=== PATIENT | male | born 1940 | race Caucasian/White ===

== ENCOUNTER 2018-08-06 12:00 | Inpatient (IN) | payer MEDICARE ==
[~2018-08-06] VITALS: Ht 180.3 cm; Wt 88.0 kg
[2018-08-06] VITALS (12 sets, daily range): BP systolic 142–162; BP diastolic 61–75
[2018-08-06] MEDS ORDERED: TETanus/Pertussis (Acell)/Diphther VAC/PF (Tdap-Adult) 0.5ml syringe IM ONE (13:20)
[2018-08-06] MEDS ORDERED: ondansetron/PF 4mg/2ml inj IV ONE (13:20)
[2018-08-06] MEDS ORDERED: LIDOcaine 1% w/epiNEPHrine 1:200,000 30ml vial IM ONE (13:20)
[2018-08-06] MEDS ORDERED: morphine 5 MG/ML injection IV ONE (13:20)
[2018-08-06] MEDS ORDERED: morphine 10mg/ml inj. IV ONE (13:25)
[2018-08-06] MEDS ORDERED: morphine 4 MG/ML inj SYRINge IV ONE (13:30)
[2018-08-06] MEDS ORDERED: ceFAZolin 1GM/D5W- ADD-VANTAGE 50 ML IV ONE (14:00)
[2018-08-06] MEDS ORDERED: METF-438 PO (15:53)
[2018-08-06] MEDS ORDERED: GLIP10TA11 PO (15:53)
[2018-08-06] MEDS ORDERED: SIMV20TA5 PO (15:53)
[2018-08-06] MEDS ORDERED: BENA40TA73 PO (15:54)
[2018-08-06] MEDS ORDERED: normal saline 1000ml 1,000 ML IV SCH (16:51)
[2018-08-06] MEDS ORDERED: ondansetron/PF 4mg/2ml inj IV PRN ×2 (16:55→17:15)
[2018-08-06] MEDS ORDERED: morphine 4 MG/ML inj SYRINge IV PRN ×4 (16:55→17:15)
[2018-08-06] MEDS ORDERED: magnesium 4gm in 100ml NS 100 ML IV PRN (16:55)
[2018-08-06] MEDS ORDERED: magnesium Cl slow-release 64mg tablet PO PRN (16:55)
[2018-08-06] MEDS ORDERED: potassium Cl 40MEQ/NS 500ml 500 ML IV PRN ×2 (16:55)
[2018-08-06] MEDS ORDERED: magnesium hydroxide 30ml (MOM) UD suspension PO PRN (16:55)
[2018-08-06] MEDS ORDERED: potassium Cl 20 mEq SR tablet PO PRN ×2 (16:55)
[2018-08-06] MEDS ORDERED: magnesium 2GM in 50ml NS 50 ML IV PRN (16:55)
[2018-08-06] MEDS ORDERED: bisacodyl 10mg suppository rectal RC PRN (16:55)
[2018-08-06] MEDS ORDERED: ringers solution, lacted 1,000 ML IV SCH (17:13)
[2018-08-06] MEDS ORDERED: proCHLORperazine 10 MG/2 ml inj IV PRN (17:15)
[2018-08-06] MEDS ORDERED: meperidine/PF 25mg/ml syringe IV PRN ×3 (17:15)
[2018-08-06] MEDS ORDERED: ceFAZolin 1000mg inj ONE ×3 (17:17→17:50)
[2018-08-06] MEDS ORDERED: BUPIVAcaine/PF 2.5mg/ml (0.25%) 10ml vial ONE (17:17)
[2018-08-06] MEDS ORDERED: bacitracin 15gm ointment TP ONE (17:17)
[2018-08-06 17:47] LABS: BASOPHILS % (AUTO) 0.5 % (0-1); EOSINOPHILS % (AUTO) 0.8 % (0-6); LYMPHOCYTES # (AUTO) 1.4 X10'3 (1.1-4.8); LYMPHOCYTES % (AUTO) 23.7 % (21-51); MEAN CORPUSCULAR HEMOGLOBIN 30.6 PG (27.0-31.0); MEAN CORPUSCULAR HGB CONC 35.4 g/dL (33.0-36.5); MEAN CORPUSCULAR VOLUME 86.3 FL (78-98); MEAN PLATELET VOLUME 7.8 FL (7.4-10.4); MONOCYTES # (AUTO) 0.5 X10'3 (0-0.9); MONOCYTES % (AUTO) 8.1 % (2-12); NEUTROPHILS # (AUTO) 3.9 X10'3 (1.8-7.7); NEUTROPHILS % (AUTO) 66.9 % (42-75); PRE OP HEMATOCRIT 34.3 % (42.0-52.0); PRE OP HEMOGLOBIN 12.2 g/dL (14.0-17.9); PRE OP PLATELET COUNT 220 X10'3 (140-440); RED BLOOD COUNT 3.98 X10'6 (4.70-6.10); RED CELL DISTRIBUTION WIDTH 13.5 % (11.5-14.5)
[2018-08-06] MEDS ORDERED: midazolam 2 mg/2 ml injection ONE (17:47)
[2018-08-06] MEDS ORDERED: fentaNYL/PF 50MCG/1 ML 2ML syringe ONE (17:47)
[2018-08-06] MEDS ORDERED: propofol inj 20 ML IV ONE (17:48)
[2018-08-06 17:51] LABS: ALBUMIN 3.8 G/DL (3.4-5.0); BLOOD UREA NITROGEN 19 MG/DL (7-18); BUN/CREATININE RATIO 17.1 (5.4-32.0); CALCIUM 9.2 MG/DL (8.5-10.1); CHLORIDE 104 MMOL/L (99-107); CREATININE 1.11 MG/DL (0.60-1.10); PRE OP ANION GAP 7 (8-16); PRE OP GLUCOSE 129 MG/DL (70-104); PRE OP POTASSIUM 4.2 MMOL/L (3.4-5.1); PRE OP SODIUM 139 MMOL/L (135-145); TOTAL CARBON DIOXIDE 27.7 MMOL/L (24-32); eGFR 64 ML/MIN
[2018-08-06] MEDS ORDERED: sevoflurane 250ml liquid IH ONE (17:53)
--- NOTE | 2018-08-06 19:05 | NUR ---
Received from OR via , accompanied by Anesthesiologist DR MARX and report given by Anesthesiolgist. PT IS AWAKE, NEEDS ORIENTATION, SKIN WARM AND PINK, RIGHT INDEX FINGER COVERED IN KERLIX CD, PIN AND K WIRE WITH IFEOMA DRAIN IN PLACE. VSS, SCDS, NO C/O PAIN, PIV [id number] LEFT AC WITH LR 100ML/HR.
--- NOTE | 2018-08-06 19:35 | NUR ---
Report called to receiving nurse. Transferred via BED Belongings . Special Issues communicated to receiving nurse KASEY SALAZAR. PT IS AWAKE, ALERT, MOVES EXT X 4, RIGHT INDEX FINGER DRESSING WITH SMALL SANQ DRAINAGE, PIN EXPOSED ON TIP OF FINGER, PLACED FOAM PAD TO PROTECT THE SURGICAL SITE, SCDS, NO C/O PAIN, PATIENT HAS MET DISCHARGE CRITERIA.
[2018-08-06] MEDS: docusate sod 100mg capsule PO SCH (20:00)
--- NOTE | 2018-08-06 20:00 | NUR ---
received report and patient brought to room. Post op VS initiated. Family at bedside. SCDs on and patient and patient assessed. No pain noted. Hand elevated and fluids running per order.
[2018-08-06 22:29] LABS: HEMOGLOBIN A1C 7.3 % (4.5-6.2)
[2018-08-07] MEDS: ceFAZolin 1GM/D5W- ADD-VANTAGE 50 ML IV SCH ×3 (00:15→16:19)
--- NOTE | 2018-08-07 01:06 | NUR ---
reviewed and agree with SRN assessment
[2018-08-07 02:02] VITALS: BP 145/69
[2018-08-07 06:00] VITALS: BP 137/66
--- NOTE | 2018-08-07 06:10 | NUR ---
Problems reprioritized. Patient report given, questions answered & plan of care reviewed with MARIE Granados.
[2018-08-07 06:49] LABS: BASOPHILS % (AUTO) 0.4 % (0-1); EOSINOPHILS # (AUTO) 0.1 X10'3 (0-0.9); HEMATOCRIT 32.3 % (42.0-52.0); HEMOGLOBIN 11.4 g/dl (14.0-17.9); LYMPHOCYTES # (AUTO) 1.3 X10'3 (1.1-4.8); LYMPHOCYTES % (AUTO) 20.6 % (21-51); MEAN CORPUSCULAR HEMOGLOBIN 30.4 PG (27.0-31.0); MEAN CORPUSCULAR HGB CONC 35.2 g/dL (33.0-36.5); MEAN CORPUSCULAR VOLUME 86.4 FL (78-98); MEAN PLATELET VOLUME 7.6 FL (7.4-10.4); MONOCYTES # (AUTO) 0.6 X10'3 (0-0.9); MONOCYTES % (AUTO) 9.8 % (2-12); NEUTROPHILS # (AUTO) 4.1 X10'3 (1.8-7.7); NEUTROPHILS % (AUTO) 67.2 % (42-75); PLATELET COUNT 207 X10'3 (140-440); RED BLOOD COUNT 3.73 X10'6 (4.70-6.10); RED CELL DISTRIBUTION WIDTH 13.7 % (11.5-14.5); WHITE BLOOD COUNT 6.2 X10'3 (4.5-11.0)
[2018-08-07 06:58] LABS: ALBUMIN 3.4 G/DL (3.4-5.0); ANION GAP 7 (8-16); BLOOD UREA NITROGEN 14 MG/DL (7-18); BUN/CREATININE RATIO 12.5 (5.4-32.0); CALCIUM 8.9 MG/DL (8.5-10.1); CHLORIDE 107 MMOL/L (99-107); CREATININE 1.12 MG/DL (0.60-1.10); GLUCOSE 124 MG/DL (70-104); MAGNESIUM 1.5 MG/DL (1.5-2.4); POTASSIUM 4.2 MMOL/L (3.5-5.1); SODIUM 142 MMOL/L (135-145); TOTAL CARBON DIOXIDE 27.6 MMOL/L (24-32); eGFR 64 ML/MIN
[2018-08-07] MEDS ORDERED: K and/or MAG REPLACEMENT MC SCH (08:00)
[2018-08-07] MEDS ORDERED: vancomycin/NS 1 GM ADD-VANTAGE 250 ML IV SCH (08:00)
[2018-08-07] MEDS: docusate sod 100mg capsule PO SCH (08:01)
[2018-08-07] MEDS ORDERED: HYDROcodone/acetaminophen 10/325mg tab PO PRN (09:10)
[2018-08-07] MEDS ORDERED: acetaminophen 325mg tablet PO PRN ×3 (09:10→09:50)
[2018-08-07] MEDS ORDERED: dextrose 50%-water 50ml dispensing syringe IV PRN ×2 (09:20)
[2018-08-07] MEDS ORDERED: MESSAGE TO PHARMACY PO ONE (09:20)
[2018-08-07] MEDS ORDERED: insulin Lispro (HumaLOG) vial - multi-dose SQ SCH (09:20)
[2018-08-07] MEDS ORDERED: glucagon, human recombinant 1mg kit SUBCUT PRN (09:20)
[2018-08-07] MEDS ORDERED: dextrose ORAL solution 15 GM/59 ML bottle PO PRN ×2 (09:20)
[2018-08-07 10:00] VITALS: BP 160/66
[2018-08-07] MEDS: HYDROcodone/acetaminophen 5mg/325mg tablet PO PRN ×2 (11:49→16:19)
--- NOTE | 2018-08-07 13:59 | NUR ---
DM consult: Pt with A1c 7.3 seen at bedside. Pt states he sees an MD q 6 months, takes his DM meds per rx, and checks his BG levels fasting every morning with resulting numbers 119-130. Pt admit with finger laceration. Pt given written and verbal protein and DM ed with referral to outpatient DM class. All of patient's questions answered at this time. Pt states he dislikes green beans, discussed this with dietary. RD contact information provided. Will remain available. Addendum: 08/07/18 at [address] Amended: Links added.
--- NOTE | 2018-08-07 16:55 | NUR ---
PAGER ID: [phone] MESSAGE: Roberta funes [phone] re Mr Cesar Dhaliwal in - Dr Galicia said he could dc, gave me abx, pain med rx orders and instructions, is that ok with you? Pls advise, thanks
[2018-08-07] MEDS ORDERED: TRAM50TA2 PO (17:16)
[2018-08-07] MEDS ORDERED: AMOX-419 PO (17:16)
[2018-08-07] MEDS ORDERED: atorvastatin 20mg tablet PO SCH (21:00)
[2018-08-07] MEDS ORDERED: insulin glargine (Lantus) pen - multi-dose SQ SCH (21:00)
[2018-08-08] MEDS ORDERED: lisinopril 10 MG tablet PO SCH (08:00)
== END 2018-08-07 18:00 | disposition home or self-care (01) | DRG 906 ==
LOC: ER 12:01 → PACU 16:54 → ORTHO 4S 18:12 → PACU 18:13 → ORTHO 4S 20:00
PROVIDERS: ADMIT Internal Medicine; ATTEND Family Medicine
PROC: 3E0T3BZ Introduction of Anesthetic Agent into Peripheral Nerves and Plexi, Percutaneous Approach (ICD-10-PCS; 2018-08-06)
PROC: 0LQ70ZZ Repair Right Hand Tendon, Open Approach (ICD-10-PCS; 2018-08-06)
PROC: 0RGW04Z Fusion of Right Finger Phalangeal Joint with Internal Fixation Device, Open Approach (ICD-10-PCS; principal; 2018-08-06 17:53)
DX: S68.620A Partial traumatic transphalangeal amputation of right index finger, initial encounter (principal); E11.9 Type 2 diabetes mellitus without complications; E78.5 Hyperlipidemia, unspecified; I10 Essential (primary) hypertension; R01.1 Cardiac murmur, unspecified; Z79.84 Long term (current) use of oral hypoglycemic drugs; Z79.899 Other long term (current) drug therapy; W31.89XA Contact with other specified machinery, initial encounter; Y93.89 Activity, other specified; Y92.89 Other specified places as the place of occurrence of the external cause; Y99.8 Other external cause status
CPT/HCPCS: 36415; 64450; 73140; 80048; 82948; 83036; 83735; 85025; 87070; 90471; 90715; 93005; 93306; 96365; 96375; 99285; A6222; A6449; A7000; C1713; G0378; J0690; J1815; J2175; J2250; J2270; J2405; J2704; J3010; J3370; J3490; J7120

== ENCOUNTER 2020-06-18 14:08 | Inpatient (IN) | payer MEDICARE ==
[2020-06-18] VITALS (8 sets, daily range): BP systolic 87–166; BP diastolic 46–78
[~2020-06-18] VITALS: Ht 182.9 cm; Wt 81.1 kg
[~2020-06-18 14:08] MED LIST: ASPI-1265 PO; BENA40TA73 PO; CLOP75TA34 PO; METF-950 PO; SIMV-42 PO
[2020-06-18] MEDS ORDERED: METF-438 PO (14:46)
[2020-06-18] MEDS ORDERED: CHOL100046 PO (14:50)
[2020-06-18] MEDS ORDERED: FERR-119 PO (14:50)
[2020-06-18] MEDS ORDERED: ASPI-611 PO (14:50)
[2020-06-18] MEDS ORDERED: CLOP75TA15 PO (14:50)
[2020-06-18] MEDS ORDERED: MULT-1085 PO (14:50)
[2020-06-18] MEDS ORDERED: LIDOcaine/PRILOcaine 5gm cream TP ONE (15:05)
[2020-06-18] MEDS ORDERED: diphenhydrAMINE 25mg capsule PO PRN (15:05)
[2020-06-18] MEDS ORDERED: LORazepam 0.5 MG tablet PO PRN (15:05)
[2020-06-18] MEDS ORDERED: APIX5TAB3 PO (15:20)
[2020-06-18] MEDS ORDERED: phenylephrine 10mg/ml inj. ONE (15:47)
[2020-06-18] MEDS ORDERED: midazolam 2 mg/2 ml injection ONE (15:47)
[2020-06-18] MEDS ORDERED: atropine 0.1mg/ml 10ml syringe ONE (15:48)
[2020-06-18] MEDS ORDERED: fentaNYL/PF 50MCG/1 ML 2ML syringe ONE (15:48)
[2020-06-18] MEDS ORDERED: heparin 1,000unit/ml 10ml vial 10 ML ONE (15:48)
[2020-06-18] MEDS ORDERED: iohexol 350 MG/1 ML 200ml bottle ONE (15:48)
[2020-06-18] MEDS ORDERED: DOPamine 400mg/D5W 250ml 250 ML IV ONE (15:48)
[2020-06-18] MEDS: normal saline 1,000 ML IV SCH (15:55)
[2020-06-18 15:56] LABS: BASOPHILS % (AUTO) 0.5 % (0-1); EOSINOPHILS # (AUTO) 0.1 X10'3 (0-0.9); EOSINOPHILS % (AUTO) 2.3 % (0-6); HEMATOCRIT 34.9 % (42.0-52.0); HEMOGLOBIN 11.8 g/dl (14.0-17.9); LYMPHOCYTES % (AUTO) 17.5 % (21-51); MEAN CORPUSCULAR HGB CONC 33.9 g/dL (33.0-36.5); MEAN CORPUSCULAR VOLUME 85.5 FL (78-98); MEAN PLATELET VOLUME 7.5 FL (7.4-10.4); MONOCYTES # (AUTO) 0.5 X10'3 (0-0.9); MONOCYTES % (AUTO) 9.3 % (2-12); NEUTROPHILS % (AUTO) 70.4 % (42-75); PLATELET COUNT 266 X10'3 (140-440); RED BLOOD COUNT 4.08 X10'6 (4.70-6.10); RED CELL DISTRIBUTION WIDTH 14.9 % (11.5-14.5); WHITE BLOOD COUNT 5.7 X10'3 (4.5-11.0)
[2020-06-18 15:58] LABS: ALBUMIN 3.8 G/DL (3.4-5.0); ANION GAP 8 (8-16); BLOOD UREA NITROGEN 26 MG/DL (7-18); BUN/CREATININE RATIO 24.3 (5.4-32.0); CALCIUM 9.2 MG/DL (8.5-10.1); CHLORIDE 102 MMOL/L (99-107); CREATININE 1.07 MG/DL (0.60-1.10); GLUCOSE 168 MG/DL (70-104); POTASSIUM 4.4 MMOL/L (3.5-5.1); SODIUM 137 MMOL/L (135-145); TOTAL CARBON DIOXIDE 27.1 MMOL/L (24-32); eGFR 67 ML/MIN
[2020-06-18 16:03] LABS: PARTIAL THROMBOPLASTIN TIME 26 SECONDS (22-32)
[2020-06-18] MEDS ORDERED: LIDOcaine 1% (10mg/ml)w/preservative injection 20ml MDV ONE ×2 (16:10→16:39)
[2020-06-18] MEDS ORDERED: heparin 1,000 UNITS/NS 500ml 500 ML ONE (16:17)
[2020-06-18] MEDS ORDERED: clopidogrel 300mg tablet ONE (17:06)
--- NOTE | 2020-06-18 18:05 | NUR ---
Patient arrived to the unit accompanied by laborer landscape RN, cath site asymptomatic, patient educated on lying flat and oriented to room and call light.
[2020-06-18] MEDS ORDERED: hydrALAZINE 20mg/ml inj. IV PRN (18:15)
[2020-06-18] MEDS ORDERED: proCHLORperazine 10 MG/2 ml inj IV PRN (18:15)
[2020-06-18] MEDS ORDERED: HYDROcodone/acetaminophen 10/325mg tab PO PRN (18:15)
[2020-06-18] MEDS ORDERED: HYDROcodone/acetaminophen 5mg/325mg tablet PO PRN (18:15)
[2020-06-18] MEDS ORDERED: pseudoephedrine 30mg tablet PO PRN (18:15)
[2020-06-18] MEDS ORDERED: OXAZEpam 15mg capsule PO PRN (18:15)
[2020-06-18] MEDS ORDERED: DOPamine 400MG/D5W 250 ML -PCU ONLY IV PRN (18:20)
--- NOTE | 2020-06-18 18:40 | NUR ---
Problems reprioritized. Patient report given, questions answered & plan of care reviewed with Kalee RN.
--- NOTE | 2020-06-18 20:55 | NUR ---
PAGER ID: [phone] MESSAGE: Vanivictor hugo Cesar #[id number] (Carotid Stent) last two post op vitals 87/54 MAP 65 and 88/46 MAP 60. Blood pressure is decreasing pt is asymptomatic. NS @100 running. Bolus okay?
--- NOTE | 2020-06-18 20:59 | NUR ---
Per Dr. Portillo bolus pt with 1 liter of NS then continue NS maintenance fluids at 100ml/HR
[2020-06-18] MEDS ORDERED: atorvastatin 20mg tablet PO SCH (21:00)
[2020-06-18] MEDS ORDERED: normal saline 1000ml 1,000 ML IV ONE (21:00)
[2020-06-19] VITALS: BP 92/53
[2020-06-19] MEDS: normal saline 1,000 ML IV SCH ×2 (01:05→07:58)
[2020-06-19 02:00] VITALS: BP 110/58
[2020-06-19 04:00] VITALS: BP 101/54
--- NOTE | 2020-06-19 06:26 | NUR ---
Patient in room PCU 3024. I have received report from Kalee SALAZAR and had the opportunity to ask questions and assume patient care.
[2020-06-19 07:00] VITALS: BP 101/43
[2020-06-19] MEDS ORDERED: lisinopril 20mg tablet PO SCH (08:00)
[2020-06-19] MEDS ORDERED: vitamin D (cholecalciferol) 1,000 unit tablet PO SCH (08:00)
[2020-06-19] MEDS ORDERED: aspirin 81mg tablet.DR PO SCH (08:00)
[2020-06-19] MEDS ORDERED: clopidogrel 75mg tablet PO SCH (08:00)
[2020-06-19] MEDS ORDERED: multivitamins, therapeutics tablet PO SCH (08:00)
[2020-06-19] MEDS ORDERED: ferrous sulfate 325mg tablet PO SCH (08:00)
[2020-06-19 08:17] LABS: BASOPHILS % (AUTO) 0.5 % (0-1); EOSINOPHILS # (AUTO) 0.1 X10'3 (0-0.9); EOSINOPHILS % (AUTO) 2.2 % (0-6); HEMATOCRIT 25.5 % (42.0-52.0); HEMOGLOBIN 8.8 g/dl (14.0-17.9); LYMPHOCYTES # (AUTO) 0.7 X10'3 (1.1-4.8); MEAN CORPUSCULAR HEMOGLOBIN 29.7 PG (27.0-31.0); MEAN CORPUSCULAR HGB CONC 34.4 g/dL (33.0-36.5); MEAN CORPUSCULAR VOLUME 86.2 FL (78-98); MONOCYTES # (AUTO) 0.5 X10'3 (0-0.9); MONOCYTES % (AUTO) 9.4 % (2-12); NEUTROPHILS # (AUTO) 3.7 X10'3 (1.8-7.7); NEUTROPHILS % (AUTO) 73.9 % (42-75); PLATELET COUNT 200 X10'3 (140-440); RED BLOOD COUNT 2.96 X10'6 (4.70-6.10); RED CELL DISTRIBUTION WIDTH 14.7 % (11.5-14.5)
[2020-06-19 08:27] LABS: ALANINE AMINOTRANSFERASE 18 U/L (12-78); ALBUMIN 2.8 G/DL (3.4-5.0); ALKALINE PHOSPHATASE 92 IU/L (46-116); ANION GAP 7 (8-16); ASPARTATE AMINO TRANSFERASE 19 U/L (10-37); BILIRUBIN,TOTAL 0.5 MG/DL (0.1-1.0); BLOOD UREA NITROGEN 22 MG/DL (7-18); BUN/CREATININE RATIO 20.6 (5.4-32.0); CALCIUM 7.8 MG/DL (8.5-10.1); CHLORIDE 107 MMOL/L (99-107); CREATININE 1.07 MG/DL (0.60-1.10); GLUCOSE 132 MG/DL (70-104); POTASSIUM 4.2 MMOL/L (3.5-5.1); SODIUM 139 MMOL/L (135-145); TOTAL CARBON DIOXIDE 25.5 MMOL/L (24-32); TOTAL PROTEIN 5.7 G/DL (6.4-8.2); eGFR 67 ML/MIN
[2020-06-19] MEDS ORDERED: ASPI81TA52 PO (11:54)
[2020-06-19] MEDS ORDERED: METF500T PO (11:54)
[2020-06-19] MEDS ORDERED: FERR325T28 PO (11:54)
[2020-06-19] MEDS ORDERED: SIMV20TA PO (11:54)
[2020-06-19] MEDS ORDERED: BENA40TA73 PO (11:54)
[2020-06-19] MEDS ORDERED: CHOL10005 PO (11:54)
[2020-06-19] MEDS ORDERED: APIX5TAB3 PO (11:54)
[2020-06-19] MEDS ORDERED: CLOP75TA34 PO (11:54)
[2020-06-19] MEDS ORDERED: MULT-1085 PO (11:54)
--- NOTE | 2020-06-19 13:45 | NUR ---
Patient stable for discharge per MD order. All necessary discharge information and education reviewed with patient before signing necessary paperwork. Cath site asymptomatic, pvc monitor removed, IV discontinued with catheter in tact, patient belongings packed up and given to patient. Patient picked up by son out front of main lobby.
--- NOTE | 2020-06-20 10:48 | NUR ---
CASE MANAGEMENT DISCHARGE FOLLOW UP: Spoke with pt via telephone. Pt reports that he is doing "pretty good," admits to some soreness at catheterization site. Denies fever, CP, SOB, neck pain, bruising. He states that there was some swelling yesterday without firmness that went away after application of ice pack. Verbalizes understanding of s/sx requiring further evaluation/emergent assistance. Pt verbalizes understanding of medications. Pt verbalizes compliance with MD discharge instructions. Pt verbalizes understanding of the importance in making/keeping follow-up appointments, states will call Dr Lawson's office today, denies need for assistance. Pt states no further questions/concerns at this time.
[2020-06-20] MEDS ORDERED: metFORMIN 500mg tablet PO SCH (20:00)
== END 2020-06-19 13:44 | disposition home or self-care (01) | DRG 36 ==
LOC: SSTAY O 14:08 → PCU 3S 18:08
PROVIDERS: ADMIT Internal Medicine Interventional Cardiology; ATTEND Internal Medicine Interventional Cardiology
PROC: 4A023N7 Measurement of Cardiac Sampling and Pressure, Left Heart, Percutaneous Approach (ICD-10-PCS; principal; 2020-06-18)
PROC: 037L34Z Dilation of Left Internal Carotid Artery with Drug-eluting Intraluminal Device, Percutaneous Approach (ICD-10-PCS; 2020-06-18)
PROC: B2111ZZ Fluoroscopy of Multiple Coronary Arteries using Low Osmolar Contrast (ICD-10-PCS; 2020-06-18)
PROC: B2151ZZ Fluoroscopy of Left Heart using Low Osmolar Contrast (ICD-10-PCS; 2020-06-18)
DX: I65.22 Occlusion and stenosis of left carotid artery (principal); I35.0 Nonrheumatic aortic (valve) stenosis; I11.9 Hypertensive heart disease without heart failure; E78.5 Hyperlipidemia, unspecified; R94.39 Abnormal result of other cardiovascular function study; E11.9 Type 2 diabetes mellitus without complications
CPT/HCPCS: 36415; 37215; 80048; 80053; 82948; 85025; 85610; 85730; 87081; 93005; 93458; 99152; A6258; C1725; C1760; C1769; C1876; C1884; C1887; C1894; G0378; J0461; J1265; J1644; J2001; J2250; J2370; J3010; J7030; Q0163; Q9967

== ENCOUNTER 2020-10-05 18:04 | Inpatient (IN) | payer MEDICARE ==
[~2020-10-05] VITALS: Ht 365.8 cm; Wt 80.0 kg
[~2020-10-05 18:04] MED LIST changes: +APIX5TAB3 PO; -ASPI-1265 PO; +ASPI-611 PO; +CHOL100046 PO; +CHOL10005 PO; +CLOP75TA15 PO; +FERR-119 PO; +METF-438 PO; -METF-950 PO; +MULT-1085 PO; +SIMV20TA PO
[2020-10-05 18:38] LABS: BASOPHILS % (AUTO) 0.5 % (0-1); EOSINOPHILS # (AUTO) 0.2 X10'3 (0-0.9); EOSINOPHILS % (AUTO) 2.6 % (0-6); HEMATOCRIT 34.6 % (42.0-52.0); HEMOGLOBIN 11.8 g/dl (14.0-17.9); LYMPHOCYTES # (AUTO) 0.8 X10'3 (1.1-4.8); LYMPHOCYTES % (AUTO) 11.6 % (21-51); MEAN CORPUSCULAR HEMOGLOBIN 29.6 PG (27.0-31.0); MEAN CORPUSCULAR HGB CONC 34.1 g/dL (33.0-36.5); MEAN PLATELET VOLUME 7.4 FL (7.4-10.4); MONOCYTES # (AUTO) 0.5 X10'3 (0-0.9); MONOCYTES % (AUTO) 6.6 % (2-12); NEUTROPHILS # (AUTO) 5.7 X10'3 (1.8-7.7); NEUTROPHILS % (AUTO) 78.7 % (42-75); PLATELET COUNT 282 X10'3 (140-440); RED BLOOD COUNT 3.98 X10'6 (4.70-6.10); RED CELL DISTRIBUTION WIDTH 13.9 % (11.5-14.5); WHITE BLOOD COUNT 7.2 X10'3 (4.5-11.0)
[2020-10-05 18:45] LABS: PARTIAL THROMBOPLASTIN TIME 26 SECONDS (22-32)
[2020-10-05 18:47] LABS: ALBUMIN 3.7 G/DL (3.4-5.0); ANION GAP 12 (8-16); BILIRUBIN,TOTAL 0.3 MG/DL (0.1-1.0); BLOOD UREA NITROGEN 13 MG/DL (7-18); BUN/CREATININE RATIO 12.5 (5.4-32.0); CALCIUM 8.7 MG/DL (8.5-10.1); CHLORIDE 101 MMOL/L (99-107); CREATININE 1.04 MG/DL (0.60-1.10); GLUCOSE 120 MG/DL (70-104); POTASSIUM 4.6 MMOL/L (3.5-5.1); SODIUM 138 MMOL/L (135-145); TOTAL CARBON DIOXIDE 25.2 MMOL/L (24-32); TOTAL PROTEIN 7.3 G/DL (6.4-8.2); eGFR 69 ML/MIN
[2020-10-05 18:48] LABS: ALANINE AMINOTRANSFERASE 20 U/L (12-78); ALKALINE PHOSPHATASE 110 IU/L (46-116); ASPARTATE AMINO TRANSFERASE 33 U/L (10-37)
[2020-10-05 18:51] LABS: TROPONIN I < 0.04 NG/ML (0.0-0.05)
[2020-10-05] MEDS ORDERED: aspirin 325mg tablet PO ONE (19:05)
[2020-10-05] MEDS ORDERED: clopidogrel 300mg tablet PO ONE (19:20)
[2020-10-05] MEDS ORDERED: atorvastatin 20mg tablet PO ONE (19:20)
[2020-10-05] MEDS ORDERED: iohexol 350MG/ML 100ml bottle IV ONE (19:21)
--- NOTE | 2020-10-05 19:40 | NUR ---
to ct via wc
[2020-10-05] MEDS: MESSAGE TO NURSING PO NR (20:29)
[2020-10-05] MEDS ORDERED: acetaminophen 325mg tablet PO PRN (20:45)
[2020-10-05] MEDS ORDERED: magnesium hydroxide 30ml (MOM) UD suspension PO PRN (20:45)
[2020-10-05] MEDS ORDERED: potassium Cl 20 mEq SR tablet PO PRN ×2 (20:45)
[2020-10-05] MEDS ORDERED: potassium Cl 40MEQ/1/2NS 520ml 520 ML IV PRN ×2 (20:45)
[2020-10-05] MEDS ORDERED: MESSAGE TO PHARMACY PO ONE (20:45)
[2020-10-05] MEDS ORDERED: insulin Lispro (HumaLOG) vial - multi-dose SQ SCH (20:45)
[2020-10-05] MEDS ORDERED: dextrose 50%-water 50ml dispensing syringe IV PRN ×2 (20:45)
[2020-10-05] MEDS ORDERED: dextrose ORAL solution 15 GM/59 ML bottle PO PRN ×2 (20:45)
[2020-10-05] MEDS ORDERED: glucagon, human recombinant 1mg kit SUBCUT PRN (20:45)
[2020-10-05] MEDS ORDERED: ondansetron/PF 4mg/2ml inj IV PRN (20:45)
[2020-10-05] MEDS ORDERED: mag hydrox/Alum hydrox/simeth 30ml oral suspension PO PRN (20:45)
[2020-10-05] MEDS ORDERED: GLIP10TA11 PO (20:48)
[2020-10-05 21:31] LABS: HEMOGLOBIN A1C 7.3 % (4.5-6.2)
--- NOTE | 2020-10-05 21:57 | NUR ---
Patient in room ORTHO 4024. I have received report from MARIE Mercedes and had the opportunity to ask questions and assume patient care.
[2020-10-05 22:00] VITALS: BP 169/70
--- NOTE | 2020-10-05 22:55 | NUR ---
physician is already aware of patient's stroke status.
[2020-10-06 02:00] VITALS: BP 145/70
[2020-10-06 05:30] VITALS: BP 155/64
--- NOTE | 2020-10-06 06:10 | NUR ---
Patient in room ORTHO 4024. I have received report from MARIE Bains and had the opportunity to ask questions and assume patient care.
--- NOTE | 2020-10-06 06:16 | NUR ---
Problems reprioritized. Patient report given, questions answered & plan of care reviewed with MARIE Nolasco.
[2020-10-06 06:28] LABS: HEMOGLOBIN 11.3 g/dl (14.0-17.9)
[2020-10-06 06:32] LABS: BASOPHILS % (AUTO) 0.4 % (0-1); EOSINOPHILS # (AUTO) 0.2 X10'3 (0-0.9); EOSINOPHILS % (AUTO) 3.4 % (0-6); LYMPHOCYTES % (AUTO) 14.9 % (21-51); MEAN CORPUSCULAR HEMOGLOBIN 30.2 PG (27.0-31.0); MEAN CORPUSCULAR HGB CONC 35.3 g/dL (33.0-36.5); MEAN CORPUSCULAR VOLUME 85.5 FL (78-98); MEAN PLATELET VOLUME 7.4 FL (7.4-10.4); MONOCYTES # (AUTO) 0.7 X10'3 (0-0.9); MONOCYTES % (AUTO) 10.7 % (2-12); NEUTROPHILS # (AUTO) 4.6 X10'3 (1.8-7.7); NEUTROPHILS % (AUTO) 70.6 % (42-75); PLATELET COUNT 275 X10'3 (140-440); RED BLOOD COUNT 3.74 X10'6 (4.70-6.10); WHITE BLOOD COUNT 6.5 X10'3 (4.5-11.0)
[2020-10-06 06:50] LABS: ALANINE AMINOTRANSFERASE 22 U/L (12-78); ALBUMIN 3.4 G/DL (3.4-5.0); ALKALINE PHOSPHATASE 95 IU/L (46-116); ANION GAP 8 (8-16); ASPARTATE AMINO TRANSFERASE 32 U/L (10-37); BILIRUBIN,TOTAL 0.3 MG/DL (0.1-1.0); BLOOD UREA NITROGEN 12 MG/DL (7-18); BUN/CREATININE RATIO 11.8 (5.4-32.0); CALCIUM 8.9 MG/DL (8.5-10.1); CHLORIDE 104 MMOL/L (99-107); CHOL/HDL RATIO 3.5 (0.00-4.99); CHOLESTEROL 107 MG/DL (0-200); CREATININE 1.02 MG/DL (0.60-1.10); GLUCOSE 109 MG/DL (70-104); HDL CHOLESTEROL 31 MG/DL (35-60); LDL CHOLESTEROL 58 MG/DL (50-100); POTASSIUM 3.9 MMOL/L (3.5-5.1); SODIUM 138 MMOL/L (135-145); TOTAL CARBON DIOXIDE 26.3 MMOL/L (24-32); TOTAL PROTEIN 6.7 G/DL (6.4-8.2); TRIGLYCERIDES 108 MG/DL (20-135); eGFR 70 ML/MIN
[2020-10-06] MEDS ORDERED: K and/or MAG REPLACEMENT MC SCH (08:00)
[2020-10-06] MEDS ORDERED: heparin, porcine 5000 units/ml vial SQ SCH (08:00)
[2020-10-06] MEDS ORDERED: lisinopril 20mg tablet PO SCH (08:00)
[2020-10-06] MEDS ORDERED: aspirin 81mg tablet.DR PO SCH (08:00)
[2020-10-06] MEDS ORDERED: atorvastatin 20mg tablet PO SCH (08:00)
[2020-10-06] MEDS: MESSAGE TO NURSING PO NR (08:30)
[2020-10-06 10:00] VITALS: BP 145/66
--- NOTE | 2020-10-06 10:34 | NUR ---
Pt with A1c 7.3%, DM education not warranted at this time given well controlled for age. Noted pt documented as 144". Per documented ht hx pt 72", resulting BMI is 23.89. Pt currently on a CHO controlled diet documented with 100% PO intake first meal. BSS with ST pending. Will continue to follow. Addendum: 10/06/20 at [address] Amended: Links added.
--- NOTE | 2020-10-06 13:25 | NUR ---
DC inst provided to pt. IV DC'd, tip intact. All belongings sent w/pt. WC to front lobby.
--- NOTE | 2020-10-09 10:00 | NUR ---
CASE MANAGEMENT DISCHARGE FOLLOW UP: Spoke with pt via telephone. Reports that he is doing pretty good; denies changes in visions/speech, weakness, facial drooping, SOB, CP. Verbalizes understanding of s/sx requiring further evaluation/emergent assistance. Verbalizes understanding of medications, states wants to talk to his PMD before discontinuing glipizide, states currently taking 1/2 dose. Pt states has an appt scheduled with his PMD for November, advised that discharging MD would like him to f/u in 1-2 weeks, enquired if pt would like assistance in setting up earlier appointment, pt denies need for assistance. Pt states no further questions/concerns at this time.
== END 2020-10-06 13:25 | disposition home or self-care (01) | DRG 69 ==
LOC: ER 18:05 → ED HOLD 20:42 → ORTHO 4S 21:55
PROVIDERS: ADMIT Internal Medicine; ATTEND Internal Medicine
PROC: B3251ZZ Computerized Tomography (CT Scan) of Bilateral Common Carotid Arteries using Low Osmolar Contrast (ICD-10-PCS; principal; 2020-10-05)
PROC: B32G1ZZ Computerized Tomography (CT Scan) of Bilateral Vertebral Arteries using Low Osmolar Contrast (ICD-10-PCS; 2020-10-05)
PROC: B32R1ZZ Computerized Tomography (CT Scan) of Intracranial Arteries using Low Osmolar Contrast (ICD-10-PCS; 2020-10-05)
PROC: B3281ZZ Computerized Tomography (CT Scan) of Bilateral Internal Carotid Arteries using Low Osmolar Contrast (ICD-10-PCS; 2020-10-05)
DX: G45.9 Transient cerebral ischemic attack, unspecified (principal); R47.01 Aphasia; I10 Essential (primary) hypertension; E11.42 Type 2 diabetes mellitus with diabetic polyneuropathy; R01.1 Cardiac murmur, unspecified; I25.10 Atherosclerotic heart disease of native coronary artery without angina pectoris; Z86.73 Personal history of transient ischemic attack (TIA), and cerebral infarction without residual deficits; Z87.891 Personal history of nicotine dependence; Z79.899 Other long term (current) drug therapy; Z79.82 Long term (current) use of aspirin
CPT/HCPCS: 36415; 70450; 70496; 70498; 70551; 71045; 80053; 80061; 82948; 83036; 84484; 85025; 85610; 85730; 87081; 93005; 96374; 97161; 97530; 99285; G0378; J1644; J1815; Q9967

== ENCOUNTER 2021-06-30 15:14 | Inpatient (IN) | payer MEDICARE ==
[~2021-06-30] VITALS: Ht 182.9 cm; Wt 81.0 kg
[~2021-06-30 15:14] MED LIST changes: -APIX5TAB3 PO; -CHOL10005 PO; -CLOP75TA15 PO; -CLOP75TA34 PO; -SIMV20TA PO
[2021-06-30 16:02] LABS: BASOPHILS % (AUTO) 0.4 % (0-1); EOSINOPHILS # (AUTO) 0.1 X10'3 (0-0.9); EOSINOPHILS % (AUTO) 0.8 % (0-6); HEMOGLOBIN 7.2 g/dl (14.0-17.9); LYMPHOCYTES # (AUTO) 1.3 X10'3 (1.1-4.8); MEAN CORPUSCULAR HEMOGLOBIN 30.7 PG (27.0-31.0); MEAN CORPUSCULAR VOLUME 87.8 FL (78-98); MEAN PLATELET VOLUME 7.9 FL (7.4-10.4); MONOCYTES # (AUTO) 0.5 X10'3 (0-0.9); MONOCYTES % (AUTO) 5.4 % (2-12); NEUTROPHILS # (AUTO) 6.6 X10'3 (1.8-7.7); NEUTROPHILS % (AUTO) 78.4 % (42-75); PLATELET COUNT 372 X10'3 (140-440); RED BLOOD COUNT 2.34 X10'6 (4.70-6.10); WHITE BLOOD COUNT 8.4 X10'3 (4.5-11.0)
[2021-06-30 16:10] LABS: HEMATOCRIT 20.5 % (42.0-52.0)
[2021-06-30 16:12] LABS: ALANINE AMINOTRANSFERASE 23 U/L (12-78); ALBUMIN 3.5 G/DL (3.4-5.0); ALBUMIN/GLOBULIN RATIO 1.1 (1.1-1.5); ALKALINE PHOSPHATASE 88 IU/L (46-116); ANION GAP 13 (8-16); ASPARTATE AMINO TRANSFERASE 23 U/L (10-37); BILIRUBIN,TOTAL 0.2 MG/DL (0.1-1.0); BLOOD UREA NITROGEN 53 MG/DL (7-18); BUN/CREATININE RATIO 38.1 (5.4-32.0); CALCIUM 9.1 MG/DL (8.5-10.1); CHLORIDE 97 MMOL/L (99-107); CREATININE 1.39 MG/DL (0.60-1.10); GLUCOSE 442 MG/DL (70-104); POTASSIUM 4.7 MMOL/L (3.5-5.1); SODIUM 132 MMOL/L (135-145); TOTAL CARBON DIOXIDE 21.7 MMOL/L (24-32); TOTAL PROTEIN 6.8 G/DL (6.4-8.2); eGFR 49 ML/MIN
[2021-06-30] MEDS ORDERED: famotidine/PF 10 mg/ml inj IV ONE (21:00)
[2021-06-30] MEDS ORDERED: pantoprazole 40MG/D5 100ML BAG 100 ML IV ONE (21:00)
[2021-06-30] MEDS ORDERED: pantoprazole 40MG/NS 100ML BAG 100 ML IV ONE (21:05)
[2021-06-30] MEDS ORDERED: tranexamic acid 1gm/0.7% sal. 100 ML IV ONE (21:05)
[2021-06-30] MEDS: pantoprazole 40MG/NS 100ML BAG 100 ML IV SCH (22:59)
[2021-06-30 23:07] VITALS: BP 141/61
[2021-06-30 23:21] VITALS: BP 123/52
[2021-07-01] VITALS (17 sets, daily range): BP systolic 113–151; BP diastolic 54–71
[2021-07-01] MEDS ORDERED: GLIP5TAB13 PO (00:16)
[2021-07-01] MEDS ORDERED: CHLO25TA10 PO (00:16)
[2021-07-01] MEDS ORDERED: CLOP75TA15 PO (00:16)
[2021-07-01] MEDS ORDERED: diphenhydrAMINE 25mg capsule PO PRN (00:35)
[2021-07-01] MEDS ORDERED: acetaminophen 650mg rectal suppository RC PRN (00:35)
[2021-07-01] MEDS ORDERED: diphenhydrAMINE 50 mg/ml inj IV PRN (00:35)
[2021-07-01] MEDS ORDERED: morphine 2 MG/ML inj. syringe IV PRN ×2 (00:35)
[2021-07-01] MEDS ORDERED: acetaminophen 325mg tablet PO PRN ×2 (00:35)
[2021-07-01] MEDS ORDERED: ondansetron/PF 4mg/2ml inj IV PRN (00:35)
[2021-07-01] MEDS ORDERED: HYDROcodone/acetaminophen 5mg/325mg tablet PO PRN (00:35)
[2021-07-01] MEDS ORDERED: ondansetron 4mg rapidly disintigrating tab PO PRN (00:35)
[2021-07-01] MEDS ORDERED: magnesium hydroxide 30ml (MOM) UD suspension PO PRN (00:35)
[2021-07-01] MEDS ORDERED: mag hydrox/Alum hydrox/simeth 30ml oral suspension PO PRN (00:35)
[2021-07-01] MEDS ORDERED: bisacodyl 10mg suppository rectal RC PRN (00:35)
[2021-07-01] MEDS ORDERED: insulin Lispro (HumaLOG) vial - multi-dose SQ SCH (00:40)
[2021-07-01] MEDS ORDERED: dextrose 50%-water 50ml dispensing syringe IV PRN ×2 (00:40)
[2021-07-01] MEDS ORDERED: dextrose ORAL solution 15 GM/59 ML bottle PO PRN ×2 (00:40)
[2021-07-01] MEDS ORDERED: MESSAGE TO PHARMACY PO ONE (00:40)
[2021-07-01] MEDS ORDERED: glucagon, human recombinant 1mg kit SUBCUT PRN (00:40)
[2021-07-01] MEDS: pantoprazole 40MG/NS 100ML BAG 100 ML IV SCH ×5 (01:00→19:46)
[2021-07-01] MEDS: normal saline 1000ml 1,000 ML IV SCH ×3 (01:53→20:35)
--- NOTE | 2021-07-01 02:30 | NUR ---
Patient admitted to room 3018A. Alert and oriented X4. Able to make his needs known. Call rush in reach. Tele on. Skin assessment completed. Plan of care discussed, aware of NPO status. Will continue to monitor.
--- NOTE | 2021-07-01 06:30 | NUR ---
Patient in room PCU 3018. I have received report from Hailey SALAZAR and had the opportunity to ask questions and assume patient care. Patient was awake during shift change, All needs are currently met at this time.
[2021-07-01 07:04] LABS: APTT 23 SECONDS (22-32)
--- NOTE | 2021-07-01 07:48 | NUR ---
Page Sent PAGER ID: [phone] MESSAGE: Room 3018A: Cesar Lutz: Home med rec completed. [place] [phone]
[2021-07-01 07:50] LABS: LIPASE 332 U/L (73-393); MAGNESIUM 1.7 MG/DL (1.5-2.4); PHOSPHORUS 3.9 MG/DL (2.3-4.5)
[2021-07-01] MEDS ORDERED: clopidogrel 75mg tablet PO SCH (08:00)
[2021-07-01] MEDS ORDERED: aspirin 81mg, enteric-coated 1 TAB TABLET.DR PO SCH (08:00)
[2021-07-01 09:46] LABS: BASOPHILS % (AUTO) 0.6 % (0-1); EOSINOPHILS # (AUTO) 0.2 X10'3 (0-0.9); EOSINOPHILS % (AUTO) 2.4 % (0-6); HEMOGLOBIN 7.4 g/dl (14.0-17.9); LYMPHOCYTES # (AUTO) 1.4 X10'3 (1.1-4.8); LYMPHOCYTES % (AUTO) 18.9 % (21-51); MEAN CORPUSCULAR HEMOGLOBIN 30.8 PG (27.0-31.0); MEAN CORPUSCULAR HGB CONC 34.1 g/dL (33.0-36.5); MEAN CORPUSCULAR VOLUME 90.2 FL (78-98); MEAN PLATELET VOLUME 8.2 FL (7.4-10.4); MONOCYTES # (AUTO) 0.7 X10'3 (0-0.9); MONOCYTES % (AUTO) 9.2 % (2-12); NEUTROPHILS # (AUTO) 5.2 X10'3 (1.8-7.7); NEUTROPHILS % (AUTO) 68.9 % (42-75); PLATELET COUNT 280 X10'3 (140-440); RED CELL DISTRIBUTION WIDTH 14.3 % (11.5-14.5); WHITE BLOOD COUNT 7.6 X10'3 (4.5-11.0)
[2021-07-01 09:48] LABS: HEMATOCRIT 21.6 % (42.0-52.0)
[2021-07-01] MEDS: multivitamins, therapeutics tablet PO SCH (10:58)
[2021-07-01] MEDS: ferrous sulfate 325mg tablet PO SCH (10:58)
[2021-07-01] MEDS: chlorthalidone 25mg tablet PO SCH (11:00)
[2021-07-01] MEDS: lisinopril 20mg tablet PO SCH (11:01)
[2021-07-01] MEDS: docusate sod 100mg capsule PO SCH ×2 (11:05→19:45)
[2021-07-01 12:22] LABS: ALANINE AMINOTRANSFERASE 17 U/L (12-78); ALBUMIN 3.2 G/DL (3.4-5.0); ALBUMIN/GLOBULIN RATIO 1.2 (1.1-1.5); ALKALINE PHOSPHATASE 66 IU/L (46-116); ANION GAP 7 (8-16); ASPARTATE AMINO TRANSFERASE 21 U/L (10-37); BILIRUBIN,TOTAL 0.3 MG/DL (0.1-1.0); BLOOD UREA NITROGEN 50 MG/DL (7-18); BUN/CREATININE RATIO 52.1 (5.4-32.0); CALCIUM 8.8 MG/DL (8.5-10.1); CHLORIDE 106 MMOL/L (99-107); CREATININE 0.96 MG/DL (0.60-1.10); GLUCOSE 162 MG/DL (70-104); POTASSIUM 4.8 MMOL/L (3.5-5.1); SODIUM 139 MMOL/L (135-145); TOTAL CARBON DIOXIDE 26.1 MMOL/L (24-32); TOTAL PROTEIN 5.8 G/DL (6.4-8.2); eGFR 75 ML/MIN
[2021-07-01] MEDS ORDERED: fentaNYL/PF 50MCG/1 ML 2ML syringe ONE (13:58)
[2021-07-01] MEDS ORDERED: LIDOcaine Viscous 15ml cup ONE (13:59)
[2021-07-01] MEDS ORDERED: MIDAZolam 1 MG/ML 5ML VIAL ONE (13:59)
[2021-07-01] MEDS ORDERED: iohexol 350MG/ML 100ml bottle IV ONE (15:06)
--- NOTE | 2021-07-01 18:09 | NUR ---
Problems reprioritized. Patient report given, questions answered & plan of care reviewed with Hailey SALAZAR.
[2021-07-01 19:24] LABS: HEMATOCRIT 22.5 % (42.0-52.0); HEMOGLOBIN 7.8 g/dl (14.0-17.9); MEAN CORPUSCULAR HGB CONC 34.6 g/dL (33.0-36.5); MEAN CORPUSCULAR VOLUME 89.6 FL (78-98); MEAN PLATELET VOLUME 7.5 FL (7.4-10.4); PLATELET COUNT 268 X10'3 (140-440); RED BLOOD COUNT 2.51 X10'6 (4.70-6.10); RED CELL DISTRIBUTION WIDTH 14.2 % (11.5-14.5); WHITE BLOOD COUNT 6.1 X10'3 (4.5-11.0)
[2021-07-01] MEDS ORDERED: temazepam 15mg capsule PO PRN (21:00)
[2021-07-01] MEDS ORDERED: atorvastatin 20mg tablet PO SCH (21:00)
[2021-07-02] MEDS: pantoprazole 40MG/NS 100ML BAG 100 ML IV SCH ×3 (01:17→11:00)
[2021-07-02 02:00] VITALS: BP 117/60
--- NOTE | 2021-07-02 04:39 | NUR ---
patient alert and oriented X4. no bleeding during shift. no complaints of abdominal pain. will continue to monitor.
[2021-07-02 06:16] LABS: BASOPHILS % (AUTO) 0.4 % (0-1); EOSINOPHILS # (AUTO) 0.2 X10'3 (0-0.9); EOSINOPHILS % (AUTO) 2.4 % (0-6); HEMOGLOBIN 7.8 g/dl (14.0-17.9); LYMPHOCYTES # (AUTO) 1.4 X10'3 (1.1-4.8); LYMPHOCYTES % (AUTO) 18.6 % (21-51); MEAN CORPUSCULAR HEMOGLOBIN 31.4 PG (27.0-31.0); MEAN CORPUSCULAR HGB CONC 35.4 g/dL (33.0-36.5); MEAN CORPUSCULAR VOLUME 88.6 FL (78-98); MEAN PLATELET VOLUME 7.4 FL (7.4-10.4); MONOCYTES # (AUTO) 0.6 X10'3 (0-0.9); MONOCYTES % (AUTO) 7.5 % (2-12); NEUTROPHILS # (AUTO) 5.3 X10'3 (1.8-7.7); NEUTROPHILS % (AUTO) 71.1 % (42-75); PLATELET COUNT 294 X10'3 (140-440); RED BLOOD COUNT 2.48 X10'6 (4.70-6.10); RED CELL DISTRIBUTION WIDTH 14.4 % (11.5-14.5); WHITE BLOOD COUNT 7.5 X10'3 (4.5-11.0)
--- NOTE | 2021-07-02 06:30 | NUR ---
Patient in room PCU 3018. I have received report from Hailey SALAZAR and had the opportunity to ask questions and assume patient care.
[2021-07-02 07:05] LABS: ALANINE AMINOTRANSFERASE 18 U/L (12-78); ALBUMIN 2.9 G/DL (3.4-5.0); ALBUMIN/GLOBULIN RATIO 1.1 (1.1-1.5); ALKALINE PHOSPHATASE 68 IU/L (46-116); ANION GAP 7 (8-16); ASPARTATE AMINO TRANSFERASE 22 U/L (10-37); BILIRUBIN,TOTAL 0.4 MG/DL (0.1-1.0); BLOOD UREA NITROGEN 28 MG/DL (7-18); BUN/CREATININE RATIO 31.8 (5.4-32.0); CALCIUM 8.1 MG/DL (8.5-10.1); CHLORIDE 109 MMOL/L (99-107); CHOL/HDL RATIO 3.6 (0.00-4.99); CHOLESTEROL 98 MG/DL (0-200); CREATININE 0.88 MG/DL (0.60-1.10); GLUCOSE 147 MG/DL (70-104); HDL CHOLESTEROL 27 MG/DL (35-60); LDL CHOLESTEROL 43 MG/DL (50-100); POTASSIUM 4.3 MMOL/L (3.5-5.1); SODIUM 142 MMOL/L (135-145); TOTAL CARBON DIOXIDE 26.1 MMOL/L (24-32); TOTAL PROTEIN 5.6 G/DL (6.4-8.2); TRIGLYCERIDES 218 MG/DL (20-135); eGFR 83 ML/MIN
--- NOTE | 2021-07-02 07:29 | NUR ---
Diabetes Consult: Noted A1c 7.0 Well controlled and appropriate for age per ADA guidelines. DM ed not warranted at this time. Addendum: 07/02/21 at [address] Amended: Links added.
--- NOTE | 2021-07-02 07:56 | NUR ---
Critical Hct Page Sent PAGER ID: [phone] MESSAGE: Room 3018A: Cesar Lutz: Critical value: Hct 22, yesterday is 22.5. Hgb is holding at 7.8, same as yesterday post transfusion. [place] [id number]
[2021-07-02] MEDS: chlorthalidone 25mg tablet PO SCH (09:05)
[2021-07-02] MEDS: docusate sod 100mg capsule PO SCH (09:05)
[2021-07-02] MEDS: ferrous sulfate 325mg tablet PO SCH (09:07)
[2021-07-02] MEDS: lisinopril 20mg tablet PO SCH (09:19)
[2021-07-02] MEDS: multivitamins, therapeutics tablet PO SCH (09:19)
[2021-07-02] MEDS: normal saline 1000ml 1,000 ML IV SCH (11:00)
[2021-07-02 12:20] VITALS: BP 110/59
[2021-07-02 12:30] VITALS: BP 109/58
[2021-07-02 12:45] VITALS: BP 145/53
[2021-07-02 13:48] VITALS: BP 141/61
[2021-07-02] MEDS ORDERED: OMEP40CA21 PO ×2 (14:16)
[2021-07-02 15:49] VITALS: BP 140/53
[2021-07-02 15:51] LABS: HEMATOCRIT 25.9 % (42.0-52.0); HEMOGLOBIN 8.8 g/dl (14.0-17.9); MEAN CORPUSCULAR HEMOGLOBIN 29.5 PG (27.0-31.0); MEAN CORPUSCULAR HGB CONC 33.8 g/dL (33.0-36.5); MEAN CORPUSCULAR VOLUME 87.3 FL (78-98); MEAN PLATELET VOLUME 7.3 FL (7.4-10.4); PLATELET COUNT 289 X10'3 (140-440); RED BLOOD COUNT 2.97 X10'6 (4.70-6.10); RED CELL DISTRIBUTION WIDTH 15.7 % (11.5-14.5); WHITE BLOOD COUNT 6.7 X10'3 (4.5-11.0)
--- NOTE | 2021-07-02 16:19 | NUR ---
Page Sent PAGER ID: [phone] MESSAGE: Pt in Rm 318A Dhaliwal, Cesar [facility] came back at 8.8 and 25.9 discharging pt as planned. [facility] 0232
--- NOTE | 2021-07-02 17:56 | NUR ---
Pt stable for d/c. Removed ivs in both arms. pt left floor via wheelchair and left with son and in a truck. pt educated on conditions and no further questions.
[2021-07-09 13:30] LABS: OCCULT BLOOD STOOL POSITIVE (Neg)
== END 2021-07-02 17:14 | disposition home health service (06) | DRG 377 ==
LOC: ER 15:14 → ED HOLD 07-01 00:39 → EDBEDREQ 07-01 01:38 → PCU 3S 07-01 03:15
PROVIDERS: ADMIT Family Medicine; ATTEND Family Medicine
PROC: 0DJ08ZZ Inspection of Upper Intestinal Tract, Via Natural or Artificial Opening Endoscopic (ICD-10-PCS; principal; 2021-07-01)
PROC: 30233N1 Transfusion of Nonautologous Red Blood Cells into Peripheral Vein, Percutaneous Approach (ICD-10-PCS; 2021-07-01)
PROC: B4201ZZ Computerized Tomography (CT Scan) of Abdominal Aorta using Low Osmolar Contrast (ICD-10-PCS; 2021-07-01)
PROC: B4241ZZ Computerized Tomography (CT Scan) of Superior Mesenteric Artery using Low Osmolar Contrast (ICD-10-PCS; 2021-07-01)
PROC: B4281ZZ Computerized Tomography (CT Scan) of Bilateral Renal Arteries using Low Osmolar Contrast (ICD-10-PCS; 2021-07-01)
PROC: B42C1ZZ Computerized Tomography (CT Scan) of Pelvic Arteries using Low Osmolar Contrast (ICD-10-PCS; 2021-07-01)
PROC: B42H1ZZ Computerized Tomography (CT Scan) of Bilateral Lower Extremity Arteries using Low Osmolar Contrast (ICD-10-PCS; 2021-07-01)
PROC: B4211ZZ Computerized Tomography (CT Scan) of Celiac Artery using Low Osmolar Contrast (ICD-10-PCS; 2021-07-01)
DX: K92.1 Melena (principal); I21.A1 Myocardial infarction type 2; I50.33 Acute on chronic diastolic (congestive) heart failure; N17.0 Acute kidney failure with tubular necrosis; D62 Acute posthemorrhagic anemia; E87.1 Hypo-osmolality and hyponatremia; I13.0 Hypertensive heart and chronic kidney disease with heart failure and stage 1 through stage 4 chronic kidney disease, or unspecified chronic kidney disease; E11.22 Type 2 diabetes mellitus with diabetic chronic kidney disease; N18.9 Chronic kidney disease, unspecified; R55 Syncope and collapse; E11.51 Type 2 diabetes mellitus with diabetic peripheral angiopathy without gangrene; E11.65 Type 2 diabetes mellitus with hyperglycemia; I49.9 Cardiac arrhythmia, unspecified; K29.70 Gastritis, unspecified, without bleeding; Z79.02 Long term (current) use of antithrombotics/antiplatelets; Z95.820 Peripheral vascular angioplasty status with implants and grafts; Z79.82 Long term (current) use of aspirin; Z86.73 Personal history of transient ischemic attack (TIA), and cerebral infarction without residual deficits; Z79.899 Other long term (current) drug therapy
CPT/HCPCS: 36415; 36430; 43235; 71045; 74174; 80053; 80061; 82272; 82948; 83036; 83690; 83735; 83880; 84100; 84443; 84484; 85025; 85027; 85610; 85730; 86885; 86900; 86901; 86920; 87081; 93005; 93306; 99152; 99285; A4620; C9113; G0378; J1815; J2250; J3010; J3490; J7030; J7040; P9016; Q9967

== ENCOUNTER 2021-07-24 13:59 | Day surgery (SDC) | payer MEDICARE ==
[2021-07-24] VITALS (9 sets, daily range): BP systolic 130–161; BP diastolic 38–95
[~2021-07-24] VITALS: Ht 182.9 cm; Wt 81.5 kg
[~2021-07-24 13:59] MED LIST changes: -ASPI-611 PO; +CHLO25TA10 PO; +GLIP5TAB13 PO
[2021-07-24] MEDS ORDERED: diphenhydrAMINE 25mg capsule PO PRN (14:25)
[2021-07-24] MEDS ORDERED: LORazepam 0.5 MG tablet PO PRN (14:25)
[2021-07-24 14:57] LABS: BASOPHILS % (AUTO) 0.5 % (0-1); EOSINOPHILS # (AUTO) 0.2 X10'3 (0-0.9); EOSINOPHILS % (AUTO) 2.5 % (0-6); HEMATOCRIT 29.6 % (42.0-52.0); HEMOGLOBIN 9.9 g/dl (14.0-17.9); LYMPHOCYTES % (AUTO) 16.5 % (21-51); MEAN CORPUSCULAR HEMOGLOBIN 29.3 PG (27.0-31.0); MEAN CORPUSCULAR HGB CONC 33.4 g/dL (33.0-36.5); MEAN CORPUSCULAR VOLUME 87.8 FL (78-98); MEAN PLATELET VOLUME 7.2 FL (7.4-10.4); MONOCYTES # (AUTO) 0.6 X10'3 (0-0.9); NEUTROPHILS # (AUTO) 4.4 X10'3 (1.8-7.7); NEUTROPHILS % (AUTO) 71.5 % (42-75); PLATELET COUNT 290 X10'3 (140-440); RED BLOOD COUNT 3.38 X10'6 (4.70-6.10); RED CELL DISTRIBUTION WIDTH 15.8 % (11.5-14.5); WHITE BLOOD COUNT 6.2 X10'3 (4.5-11.0)
[2021-07-24 15:05] LABS: ALBUMIN 3.8 G/DL (3.4-5.0); ANION GAP 8 (8-16); BLOOD UREA NITROGEN 17 MG/DL (7-18); BUN/CREATININE RATIO 18.7 (5.4-32.0); CALCIUM 9.3 MG/DL (8.5-10.1); CHLORIDE 103 MMOL/L (99-107); CREATININE 0.91 MG/DL (0.60-1.10); GLUCOSE 124 MG/DL (70-104); POTASSIUM 4.2 MMOL/L (3.5-5.1); SODIUM 138 MMOL/L (135-145); TOTAL CARBON DIOXIDE 27.4 MMOL/L (24-32); eGFR 80 ML/MIN
[2021-07-24 15:10] LABS: APTT 25 SECONDS (22-32)
[2021-07-24] MEDS ORDERED: CLOP75TA15 PO (15:51)
[2021-07-24] MEDS ORDERED: Iron PO (15:51)
[2021-07-24] MEDS ORDERED: nitroGLYCERIN-Tridil 50MG/D5W 250 ML IV ONE (16:27)
[2021-07-24] MEDS ORDERED: midazolam 1 mg/ML 2ml injection ONE (16:27)
[2021-07-24] MEDS ORDERED: fentaNYL/PF 50MCG/1 ML 2ML syringe ONE (16:27)
[2021-07-24] MEDS ORDERED: verapamil 2.5 mg/ml inj IV ONE (16:27)
[2021-07-24] MEDS ORDERED: heparin 1,000unit/ml 10ml vial 10 ML ONE (16:27)
[2021-07-24] MEDS ORDERED: iohexol 350MG/ML 100ml bottle IV ONE (16:27)
[2021-07-24] MEDS ORDERED: LIDOcaine 1% (10mg/ml)w/preservative inj. 20ml MDV ONE (16:30)
[2021-07-24] MEDS ORDERED: proCHLORperazine 10 MG/2 ml inj IV PRN (18:15)
[2021-07-24] MEDS ORDERED: OXAZEpam 15mg capsule PO PRN (18:15)
[2021-07-24] MEDS ORDERED: ondansetron/PF 4mg/2ml inj IV PRN (18:15)
[2021-07-25 07:15] LABS: ISTAT Hct MIX 28 %PCV (42-52); ISTAT O2 SATURATION MIX VENOUS 62 % (60-80); ISTAT SOURCE BLNK
[2021-07-25 07:16] LABS: ISTAT Hct MIX 27 %PCV (42-52); ISTAT O2 SATURATION MIX VENOUS 91 % (60-80); ISTAT SOURCE BLNK
== END 2021-07-24 19:38 | disposition home or self-care (01) ==
LOC: SSTAY O 13:59
PROVIDERS: ATTEND Student in an Organized Health Care Education/Training Program
DX: I35.0 Nonrheumatic aortic (valve) stenosis (principal); I25.10 Atherosclerotic heart disease of native coronary artery without angina pectoris; E11.9 Type 2 diabetes mellitus without complications; I11.0 Hypertensive heart disease with heart failure; I50.9 Heart failure, unspecified; E78.5 Hyperlipidemia, unspecified; I65.23 Occlusion and stenosis of bilateral carotid arteries; D64.9 Anemia, unspecified; Z86.73 Personal history of transient ischemic attack (TIA), and cerebral infarction without residual deficits; Z79.899 Other long term (current) drug therapy; Z79.84 Long term (current) use of oral hypoglycemic drugs; Z87.891 Personal history of nicotine dependence
CPT/HCPCS: 36415; 80048; 82803; 82948; 85014; 85025; 85610; 85730; 93005; 93456; 99152; C1751; C1769; C1894; J1644; J2250; J3010; J3490; Q0163; Q9967; 99153; A4620; A5120

== ENCOUNTER 2021-09-25 13:01 | Outpatient (CLI) | payer MEDICARE ==
[~2021-09-25 13:01] MED LIST changes: +CLOP75TA15 PO; -FERR-119 PO; +Iron PO
[2021-09-25 13:40] LABS: BASOPHILS % (AUTO) 0.5 % (0-1); EOSINOPHILS # (AUTO) 0.2 X10'3 (0-0.9); EOSINOPHILS % (AUTO) 2.3 % (0-6); HEMATOCRIT 33.4 % (42.0-52.0); HEMOGLOBIN 11.1 g/dl (14.0-17.9); LYMPHOCYTES # (AUTO) 0.8 X10'3 (1.1-4.8); MEAN CORPUSCULAR HEMOGLOBIN 28.3 PG (27.0-31.0); MEAN CORPUSCULAR HGB CONC 33.2 g/dL (33.0-36.5); MEAN CORPUSCULAR VOLUME 85.1 FL (78-98); MEAN PLATELET VOLUME 7.4 FL (7.4-10.4); MONOCYTES # (AUTO) 0.5 X10'3 (0-0.9); MONOCYTES % (AUTO) 7.9 % (2-12); NEUTROPHILS # (AUTO) 5.1 X10'3 (1.8-7.7); NEUTROPHILS % (AUTO) 77.3 % (42-75); PLATELET COUNT 305 X10'3 (140-440); RED BLOOD COUNT 3.93 X10'6 (4.70-6.10); RED CELL DISTRIBUTION WIDTH 13.7 % (11.5-14.5); WHITE BLOOD COUNT 6.7 X10'3 (4.5-11.0)
[2021-09-25 13:52] LABS: APTT 25 SECONDS (22-32)
[2021-09-25 13:56] LABS: ALANINE AMINOTRANSFERASE 26 U/L (12-78); ALBUMIN 3.7 G/DL (3.4-5.0); ALBUMIN/GLOBULIN RATIO 0.9 (1.1-1.5); ALKALINE PHOSPHATASE 118 IU/L (46-116); ANION GAP 11 (8-16); ASPARTATE AMINO TRANSFERASE 26 U/L (10-37); BILIRUBIN,TOTAL 0.4 MG/DL (0.1-1.0); BLOOD UREA NITROGEN 23 MG/DL (7-18); BUN/CREATININE RATIO 18.9 (5.4-32.0); CALCIUM 8.8 MG/DL (8.5-10.1); CHLORIDE 103 MMOL/L (99-107); CREATININE 1.22 MG/DL (0.60-1.10); GLUCOSE 232 MG/DL (70-104); POTASSIUM 4.3 MMOL/L (3.5-5.1); SODIUM 140 MMOL/L (135-145); TOTAL CARBON DIOXIDE 26.2 MMOL/L (24-32); TOTAL PROTEIN 7.9 G/DL (6.4-8.2); eGFR 57 ML/MIN
[2021-09-25] MEDS ORDERED: IODIXANOL 320 MG/ML INFUS..BTL 50ML IV ONE (14:43)
[2021-09-25] MEDS ORDERED: IODIXANOL 320 MG/ML INFUS..BTL 100ML IV ONE (14:43)
== END 2021-09-25 23:59 | disposition home or self-care (01) ==
LOC: RAD 13:01
PROVIDERS: ATTEND Internal Medicine Cardiovascular Disease
DX: I70.0 Atherosclerosis of aorta (principal); D64.9 Anemia, unspecified; I35.0 Nonrheumatic aortic (valve) stenosis; R06.02 Shortness of breath; I65.29 Occlusion and stenosis of unspecified carotid artery; M47.819 Spondylosis without myelopathy or radiculopathy, site unspecified; Z20.822 Contact with and (suspected) exposure to COVID-19
CPT/HCPCS: 36415; 71046; 71275; 74175; 80053; 85025; 85610; 85730; 87635; 94010; 94727; 94729; C9803; Q9967

== ENCOUNTER 2021-10-24 06:23 | Inpatient (IN) | payer MEDICARE ==
[2021-10-16 12:15] LABS: CLARITY,URINE CLEAR (Clear); COLOR,URINE YELLOW (Yellow); GLUCOSE, URINE NEGATIVE (Neg); KETONES,URINE NEGATIVE (Neg); LEUKOCYTE ESTERASE ,URINE NEGATIVE (Neg); NITRITES, URINE NEGATIVE (Neg); OCCULT BLOOD,URINE NEGATIVE (Neg); PH,URINE 7.5 (4.8-8.0); PROTEIN,URINE NEGATIVE (Neg); UROBILINOGEN,URINE 0.2 E.U/dL (0.2-1.0)
[2021-10-16 12:22] LABS: UA COLLECTION TYPE CLN CATCH MIDSTREAM
[2021-10-16 12:25] LABS: BASOPHILS % (AUTO) 0.4 % (0-1); EOSINOPHILS # (AUTO) 0.2 X10'3 (0-0.9); EOSINOPHILS % (AUTO) 2.7 % (0-6); LYMPHOCYTES # (AUTO) 0.8 X10'3 (1.1-4.8); LYMPHOCYTES % (AUTO) 12.7 % (21-51); MEAN CORPUSCULAR HEMOGLOBIN 28.3 PG (27.0-31.0); MEAN CORPUSCULAR HGB CONC 34.2 g/dL (33.0-36.5); MEAN CORPUSCULAR VOLUME 82.9 FL (78-98); MEAN PLATELET VOLUME 7.7 FL (7.4-10.4); MONOCYTES # (AUTO) 0.6 X10'3 (0-0.9); MONOCYTES % (AUTO) 9.2 % (2-12); PRE OP HEMATOCRIT 31.1 % (42.0-52.0); PRE OP PLATELET COUNT 247 X10'3 (140-440); RED BLOOD COUNT 3.76 X10'6 (4.70-6.10); RED CELL DISTRIBUTION WIDTH 13.9 % (11.5-14.5)
[2021-10-16 12:28] LABS: PRE OP PROTIME 10.6 SECONDS (9.0-12.0)
[2021-10-16 12:34] LABS: ALBUMIN 3.8 G/DL (3.4-5.0); ALBUMIN/GLOBULIN RATIO 1.1 (1.1-1.5); ALKALINE PHOSPHATASE 110 IU/L (46-116); BLOOD UREA NITROGEN 12 MG/DL (7-18); BUN/CREATININE RATIO 12.5 (5.4-32.0); CALCIUM 8.8 MG/DL (8.5-10.1); CHLORIDE 96 MMOL/L (99-107); CREATININE 0.96 MG/DL (0.60-1.10); PRE OP ALT 22 U/L (30-65); PRE OP ANION GAP 9 (8-16); PRE OP AST 26 U/L (10-37); PRE OP BILIRUB, TOTAL 0.5 MG/DL (0.0-1.0); PRE OP GLUCOSE 125 MG/DL (70-104); PRE OP HEMOGLOBIN 10.6 g/dL (14.0-17.9); PRE OP POTASSIUM 4.3 MMOL/L (3.4-5.1); TOTAL CARBON DIOXIDE 25.4 MMOL/L (24-32); TOTAL PROTEIN 7.2 G/DL (6.4-8.2); eGFR 75 ML/MIN
[2021-10-16 12:41] LABS: PRE OP SODIUM 130 MMOL/L (135-145)
[2021-10-16 12:46] LABS: HEMOGLOBIN A1C 7.8 % (4.5-6.2)
[2021-10-22 15:31] LABS: ALANINE AMINOTRANSFERASE 22 U/L (12-78); ALBUMIN 3.6 G/DL (3.4-5.0); ALBUMIN/GLOBULIN RATIO 1.1 (1.1-1.5); ALKALINE PHOSPHATASE 105 IU/L (46-116); ANION GAP 7 (8-16); ASPARTATE AMINO TRANSFERASE 27 U/L (10-37); BILIRUBIN,TOTAL 0.5 MG/DL (0.1-1.0); BLOOD UREA NITROGEN 17 MG/DL (7-18); CALCIUM 8.5 MG/DL (8.5-10.1); CHLORIDE 102 MMOL/L (99-107); CREATININE 1.13 MG/DL (0.60-1.10); GLUCOSE 150 MG/DL (70-104); POTASSIUM 4.2 MMOL/L (3.5-5.1); SODIUM 137 MMOL/L (135-145); TOTAL CARBON DIOXIDE 28.4 MMOL/L (24-32); eGFR 62 ML/MIN
[2021-10-22 15:35] LABS: APTT 26 SECONDS (22-32)
[~2021-10-24] VITALS: Ht 180.3 cm; Wt 81.0 kg
[2021-10-24] VITALS (20 sets, daily range): BP systolic 104–168; BP diastolic 48–84
[~2021-10-24 06:23] MED LIST changes: +ASPI81TA52 PO; +ATOR40TA71 PO; -CLOP75TA15 PO; -SIMV-42 PO; +aspirin 325mg tablet PO ONE; +ceFAZolin inj. 2,000 MG in dextrose 5%-water 100 ML IV ONE; +famotidine 20mg tablet PO ONE; +nitroPRUSSIDE (NIPRIDE) (200MCG/ML) 100ML Drip IV SCH; +ondansetron/PF 4mg/2ml inj IV PRN; +phenylephrine inj 50 MG in normal saline 250ml IV solN IV SCH; +ringers solution, lacted 1,000 ML IV SCH; +vancomycin 1,500 MG in NS 300ml IV soln IV ONE; +vancomycin/NS 1 GM in NS 250 ML IV ONE
[2021-10-24] MEDS ORDERED: protamine sulfate 10mg/ml inj. ONE (06:38)
[2021-10-24] MEDS ORDERED: iohexol 300mg/ml 100ml inj. ONE (09:03)
[2021-10-24] MEDS ORDERED: heparin 1,000 UNITS/NS 500ml 1,500 ML ONE (09:03)
[2021-10-24] MEDS ORDERED: LIDOcaine 1% 30ml preserv. free vial ONE (09:06)
[2021-10-24] MEDS ORDERED: REMIFENTANIL (Ultiva) 1 MG VIAL IV ONE (09:15)
[2021-10-24] MEDS ORDERED: nitroPRUSSIDE 20mg/NS 100mL (0.2mg/mL) VIAL (200mcg/ml) IV ONE (09:15)
[2021-10-24] MEDS ORDERED: midazolam 1 mg/ML 2ml injection ONE (09:27)
[2021-10-24] MEDS ORDERED: heparin 1,000unit/ml 10ml vial 10 ML ONE (09:40)
[2021-10-24] MEDS ORDERED: propofol inj 20 ML IV ONE (09:42)
[2021-10-24] MEDS ORDERED: morphine 2 MG/ML inj. syringe IV PRN (10:35)
[2021-10-24] MEDS ORDERED: ringers solution, lacted 1,000 ML IV SCH (10:35)
[2021-10-24] MEDS ORDERED: morphine 4 MG/ML inj SYRINge IV PRN (10:35)
[2021-10-24] MEDS ORDERED: meperidine/PF 25mg/ml syringe IV PRN ×3 (10:35)
[2021-10-24] MEDS ORDERED: proCHLORperazine 10 MG/2 ml inj IV PRN ×2 (10:35→11:10)
[2021-10-24] MEDS ORDERED: ondansetron/PF 4mg/2ml inj IV PRN ×2 (10:35→11:10)
[2021-10-24] MEDS ORDERED: diphenhydrAMINE 50 mg/ml inj ONE (10:50)
[2021-10-24] MEDS ORDERED: iohexol 300 MG/1 ML 50ml polymer ONE (11:00)
[2021-10-24] MEDS ORDERED: docusate sod 100mg capsule PO PRN (11:10)
[2021-10-24] MEDS ORDERED: diphenhydrAMINE 25mg capsule PO PRN (11:10)
[2021-10-24] MEDS ORDERED: ALPRAZolam 0.25mg tablet PO PRN (11:10)
[2021-10-24] MEDS ORDERED: insulin Lispro (HumaLOG) vial - multi-dose SQ SCH (11:10)
[2021-10-24] MEDS ORDERED: glucagon, human recombinant 1mg kit SUBCUT PRN (11:10)
[2021-10-24] MEDS: normal saline 1000ml 1,000 ML IV SCH ×2 (11:10→20:59)
[2021-10-24] MEDS ORDERED: DEXTROSE 15 GM of carb/4 tabs (each vial/BOTTLE has 4 tablets) PO PRN ×2 (11:10)
[2021-10-24] MEDS ORDERED: acetaminophen 325mg tablet PO PRN (11:10)
[2021-10-24] MEDS ORDERED: dextrose 50%-water 50ml dispensing syringe IV PRN ×2 (11:10)
[2021-10-24] MEDS ORDERED: MESSAGE TO PHARMACY PO ONE (11:10)
[2021-10-24] MEDS ORDERED: pantoprazole 40mg Tablet.DR PO PRN (11:10)
[2021-10-24] MEDS ORDERED: insulin regular, human U-100 3ml vial - multi-dose SQ SCH (11:10)
--- NOTE | 2021-10-24 11:25 | NUR ---
Received from OR via BED, accompanied by Anesthesiologist JOHNNA and report given by Anesthesiolgist. PT AWAKE AND ALERT, NEURO CHECKS INTACT. NO RESP DISTRESS NOTED, OXYGENATING WELL ON 10 LPM O2 VIA MASK. DENIES ANY PAIN OR NAUSEA. L GROIN HAS GAUZE OCCLUSIVE DSG, CDI. DP AND PT PULSES PALPABLE ON LEFT. R GROIN HAS GAUZE OCCLUSIVE DSG ON, CDI. DP AND PT PULSES PALPABLE ON RIGHT. VSS, TITRATING NIPRIDE TO KEEP SBP <140. SCDS ON.
[2021-10-24] MEDS ORDERED: LIDOcaine 1% W/epiNEPHrine 1:100,000 20ml vial ONE (12:19)
--- NOTE | 2021-10-24 12:31 | NUR ---
L GROIN DSG SATURATED WITH SANGINOUS OOZE. NOTIFIED STUD BEEF CATTLE FARMER, RN CAME AND HELD PRESSURE/INJECTED LIDOCAINE INTO AREA TO VASOCONSTRICT AND STOP OOZING. NO CHANGE TO LE PULSES OR NEURO STATUS. ACCU CHECK 144. ART LINE DCD.
--- NOTE | 2021-10-24 13:00 | NUR ---
Patient in room PAS IN 900. I have received report from MARIE FAN, and had the opportunity to ask questions and assume patient care.
--- NOTE | 2021-10-24 13:00 | NUR ---
Report called to receiving nurse. Transferred via BED Belongings WITH PT, 1 BAG OF BELONGINGS. B GROINS ARE STABLE, DSGS CDI. NO CHANGE TO PEDAL PULSES OR NEURO STATUS. AT BEDSIDE. VSS. TRANSFERRED TO PCU IN STABLE CONDITION. Special Issues communicated to receiving nurse.
--- NOTE | 2021-10-24 13:15 | NUR ---
PT ARRIVED ON FLOOR. PT'S SURGERY AT 11:15. PT OK TO AMBULATE AT 17:15.
[2021-10-24] MEDS: lisinopril 20mg tablet PO SCH (13:54)
[2021-10-24] MEDS: sod chloride 0.9% 10ml flush syringe IV SCH (16:00)
[2021-10-24] MEDS: hydrALAZINE 20mg/ml inj. IV PRN ×2 (16:44→17:23)
[2021-10-24] MEDS: ferrous sulfate 325mg tablet PO SCH (17:53)
--- NOTE | 2021-10-24 18:28 | NUR ---
Problems reprioritized. Patient report given, questions answered & plan of care reviewed with MARIE ADAMS.
[2021-10-24] MEDS: ceFAZolin 1GM/D5W- ADD-VANTAGE 50 ML IV SCH ×2 (19:07→23:31)
[2021-10-24] MEDS ORDERED: insulin glargine (Lantus) pen - multi-dose SQ SCH (21:00)
[2021-10-24] MEDS: labetalol 20mg/4ml (5mg/ml) syringe IV PRN (22:52)
[2021-10-25] MEDS: sod chloride 0.9% 10ml flush syringe IV SCH
[2021-10-25] MEDS: vancomycin/NS 1 GM ADD-VANTAGE 250 ML IV SCH ×2 (00:17→08:17)
[2021-10-25] MEDS: labetalol 20mg/4ml (5mg/ml) syringe IV PRN (01:51)
[2021-10-25 02:00] VITALS: BP 143/50
[2021-10-25 06:00] VITALS: BP 145/50
--- NOTE | 2021-10-25 06:33 | NUR ---
Patient in room PCU 3014. I have received report from MARIE ADAMS, and had the opportunity to ask questions and assume patient care.
[2021-10-25 07:00] LABS: BASOPHILS % (AUTO) 0.3 % (0-1); EOSINOPHILS # (AUTO) 0.1 X10'3 (0-0.9); EOSINOPHILS % (AUTO) 1.5 % (0-6); HEMATOCRIT 30.1 % (42.0-52.0); LYMPHOCYTES # (AUTO) 0.7 X10'3 (1.1-4.8); LYMPHOCYTES % (AUTO) 9.1 % (21-51); MEAN CORPUSCULAR HEMOGLOBIN 27.9 PG (27.0-31.0); MEAN CORPUSCULAR HGB CONC 33.4 g/dL (33.0-36.5); MEAN CORPUSCULAR VOLUME 83.7 FL (78-98); MEAN PLATELET VOLUME 7.4 FL (7.4-10.4); MONOCYTES # (AUTO) 0.8 X10'3 (0-0.9); MONOCYTES % (AUTO) 9.8 % (2-12); NEUTROPHILS # (AUTO) 6.4 X10'3 (1.8-7.7); NEUTROPHILS % (AUTO) 79.3 % (42-75); PLATELET COUNT 201 X10'3 (140-440); RED BLOOD COUNT 3.59 X10'6 (4.70-6.10); RED CELL DISTRIBUTION WIDTH 14.2 % (11.5-14.5)
[2021-10-25] MEDS: ceFAZolin 1GM/D5W- ADD-VANTAGE 50 ML IV SCH (07:15)
[2021-10-25 07:16] LABS: ALANINE AMINOTRANSFERASE 18 U/L (12-78); ALBUMIN 3.1 G/DL (3.4-5.0); ALKALINE PHOSPHATASE 102 IU/L (46-116); ANION GAP 9 (8-16); ASPARTATE AMINO TRANSFERASE 29 U/L (10-37); BILIRUBIN,TOTAL 0.6 MG/DL (0.1-1.0); BLOOD UREA NITROGEN 19 MG/DL (7-18); BUN/CREATININE RATIO 17.4 (5.4-32.0); CALCIUM 8.5 MG/DL (8.5-10.1); CHLORIDE 107 MMOL/L (99-107); CREATININE 1.09 MG/DL (0.60-1.10); GLUCOSE 152 MG/DL (70-104); MAGNESIUM 1.3 MG/DL (1.5-2.4); POTASSIUM 4.2 MMOL/L (3.5-5.1); SODIUM 141 MMOL/L (135-145); TOTAL CARBON DIOXIDE 25.3 MMOL/L (24-32); TOTAL PROTEIN 6.3 G/DL (6.4-8.2); eGFR 65 ML/MIN
[2021-10-25] MEDS: lisinopril 20mg tablet PO SCH (07:19)
[2021-10-25] MEDS: ferrous sulfate 325mg tablet PO SCH (07:19)
[2021-10-25] MEDS ORDERED: aspirin 81mg, enteric-coated 1 TAB TABLET.DR PO SCH (08:00)
[2021-10-25] MEDS ORDERED: cholecalciferol (vitamin D3) 1,000 unit (25mcg) tablet PO SCH (08:00)
[2021-10-25] MEDS ORDERED: chlorthalidone 25mg tablet PO SCH (08:00)
[2021-10-25] MEDS ORDERED: multivitamins, therapeutics tablet PO SCH (08:00)
[2021-10-25] MEDS ORDERED: atorvastatin 20mg tablet PO SCH (08:00)
[2021-10-25] MEDS ORDERED: aspirin 81mg tab.chew PO SCH (08:30)
[2021-10-25] MEDS ORDERED: magnesium Cl slow-release 64mg tablet PO PRN (08:55)
[2021-10-25] MEDS ORDERED: magnesium 2GM in 50ml NS 50 ML IV PRN (08:55)
[2021-10-25] MEDS ORDERED: potassium CL 10mEq/100ml bag 100 ML IV PRN (08:55)
[2021-10-25] MEDS ORDERED: POTASSIUM BICARB 20meq eff tab 20 MEQ TABLET.EFF PO PRN ×2 (08:55)
[2021-10-25] MEDS ORDERED: magnesium 4gm in 100ml NS 100 ML IV PRN (08:55)
--- NOTE | 2021-10-25 09:55 | NUR ---
PT REFUSED SQ HUMALOG FOR BG 168. PT EDUCATED ON RISKS.
--- NOTE | 2021-10-25 10:44 | NUR ---
Noted pt with T2DM, well controlled with A1c 7.8%. Written DM education with RD contact information placed in patient's chart. Will remain available. Addendum: 10/25/21 at [address] Amended: Links added.
[2021-10-25 11:00] VITALS: BP 164/58
--- NOTE | 2021-10-25 13:01 | NUR ---
PT WAS STABLE FOR DISCHARGE PER MD. PT REMOVED FROM BEDSIDE MONITOR. PT'S PIV REMOVED WITH TIP INTACT. DISCHARGE AND FOLLOW UP INSTRUCTIONS REVIEWED WITH PT. APPROPRIATE PAPERWORK SIGNED. PT DISCHARGED TO HOME. PT WAS WALKED TO PRIVATE VEHICLE BY HOSPITAL STAFF.
[2021-10-25] MEDS ORDERED: K and/or MAG REPLACEMENT MC SCH (20:00)
== END 2021-10-25 12:48 | disposition home or self-care (01) | DRG 267 ==
LOC: PAS IN 06:23 → PCU 3S 13:27
PROVIDERS: ADMIT Internal Medicine Cardiovascular Disease; ATTEND Internal Medicine Cardiovascular Disease
PROC: B41D1ZZ Fluoroscopy of Aorta and Bilateral Lower Extremity Arteries using Low Osmolar Contrast (ICD-10-PCS; 2021-10-24)
PROC: 5A2204Z Restoration of Cardiac Rhythm, Single (ICD-10-PCS; 2021-10-24)
PROC: X2RF332 Replacement of Aortic Valve using Zooplastic Tissue, Rapid Deployment Technique, Percutaneous Approach, New Technology Group 2 (ICD-10-PCS; principal; 2021-10-24 09:15)
DX: I35.0 Nonrheumatic aortic (valve) stenosis (principal); Z00.6 Encounter for examination for normal comparison and control in clinical research program; E11.22 Type 2 diabetes mellitus with diabetic chronic kidney disease; E78.5 Hyperlipidemia, unspecified; E11.51 Type 2 diabetes mellitus with diabetic peripheral angiopathy without gangrene; I12.9 Hypertensive chronic kidney disease with stage 1 through stage 4 chronic kidney disease, or unspecified chronic kidney disease; I25.10 Atherosclerotic heart disease of native coronary artery without angina pectoris; I48.91 Unspecified atrial fibrillation; N18.9 Chronic kidney disease, unspecified; I97.88 Other intraoperative complications of the circulatory system, not elsewhere classified; Z86.73 Personal history of transient ischemic attack (TIA), and cerebral infarction without residual deficits
CPT/HCPCS: 33361; 36415; 71045; 76937; 80053; 81003; 82948; 83036; 83735; 83880; 85025; 85347; 85610; 85730; 86885; 86900; 86901; 86920; 87081; 87635; 92960; 93005; 93308; A4618; A6258; A6449; C1756; C1760; C1769; C1894; G0378; J0360; J0690; J1200; J1644; J1815; J2250; J2370; J2704; J2720; J3370; J3490; J7030; J7040; J7050; J7060; J7120; Q9967; U0003; U0005

== ENCOUNTER 2022-02-17 14:01 | Observation (INO) | payer MEDICARE ==
[2022-02-13 13:22] LABS: BASOPHILS % (AUTO) 0.5 % (0-1); EOSINOPHILS # (AUTO) 0.1 X10'3 (0-0.9); EOSINOPHILS % (AUTO) 1.8 % (0-6); HEMATOCRIT 31.2 % (42.0-52.0); HEMOGLOBIN 10.8 g/dl (14.0-17.9); LYMPHOCYTES % (AUTO) 12.8 % (21-51); MEAN CORPUSCULAR HEMOGLOBIN 28.9 PG (27.0-31.0); MEAN CORPUSCULAR HGB CONC 34.6 g/dL (33.0-36.5); MEAN CORPUSCULAR VOLUME 83.6 FL (78-98); MEAN PLATELET VOLUME 7.5 FL (7.4-10.4); MONOCYTES # (AUTO) 0.6 X10'3 (0-0.9); MONOCYTES % (AUTO) 6.8 % (2-12); NEUTROPHILS # (AUTO) 6.4 X10'3 (1.8-7.7); NEUTROPHILS % (AUTO) 78.1 % (42-75); PLATELET COUNT 278 X10'3 (140-440); RED BLOOD COUNT 3.74 X10'6 (4.70-6.10); RED CELL DISTRIBUTION WIDTH 13.7 % (11.5-14.5); WHITE BLOOD COUNT 8.2 X10'3 (4.5-11.0)
[2022-02-13 13:24] LABS: APTT 26 SECONDS (22-32)
[2022-02-13 13:25] LABS: ALANINE AMINOTRANSFERASE 21 U/L (12-78); ALBUMIN 3.9 G/DL (3.4-5.0); ALBUMIN/GLOBULIN RATIO 1.2 (1.1-1.5); ALKALINE PHOSPHATASE 123 IU/L (46-116); ANION GAP 7 (8-16); ASPARTATE AMINO TRANSFERASE 30 U/L (10-37); BILIRUBIN,TOTAL 0.5 MG/DL (0.1-1.0); BLOOD UREA NITROGEN 21 MG/DL (7-18); BUN/CREATININE RATIO 19.6 (5.4-32.0); CALCIUM 8.4 MG/DL (8.5-10.1); CHLORIDE 97 MMOL/L (99-107); CHOL/HDL RATIO 2.4 (0.00-4.99); CHOLESTEROL 85 MG/DL (0-200); CREATININE 1.07 MG/DL (0.60-1.10); GLUCOSE 78 MG/DL (70-104); HDL CHOLESTEROL 35 MG/DL (35-60); LDL CHOLESTEROL 46 MG/DL (50-100); POTASSIUM 4.6 MMOL/L (3.5-5.1); SODIUM 132 MMOL/L (135-145); TOTAL CARBON DIOXIDE 28.3 MMOL/L (24-32); TOTAL PROTEIN 7.2 G/DL (6.4-8.2); TRIGLYCERIDES 86 MG/DL (20-135); eGFR 66 ML/MIN
[~2022-02-17] VITALS: Ht 180.3 cm; Wt 76.2 kg
[2022-02-17] VITALS (9 sets, daily range): BP systolic 130–152; BP diastolic 57–74
[~2022-02-17 14:01] MED LIST changes: -aspirin 325mg tablet PO ONE; -ceFAZolin inj. 2,000 MG in dextrose 5%-water 100 ML IV ONE; -famotidine 20mg tablet PO ONE; -nitroPRUSSIDE (NIPRIDE) (200MCG/ML) 100ML Drip IV SCH; -ondansetron/PF 4mg/2ml inj IV PRN; -phenylephrine inj 50 MG in normal saline 250ml IV solN IV SCH; -ringers solution, lacted 1,000 ML IV SCH; -vancomycin 1,500 MG in NS 300ml IV soln IV ONE; -vancomycin/NS 1 GM in NS 250 ML IV ONE
[2022-02-17] MEDS ORDERED: diphenhydrAMINE 25mg capsule PO PRN (14:30)
[2022-02-17] MEDS ORDERED: LORazepam 0.5 MG tablet PO PRN (14:30)
[2022-02-17] MEDS ORDERED: normal saline 1,000 ML IV SCH (14:30)
[2022-02-17] MEDS ORDERED: CYAN100T43 PO (14:36)
[2022-02-17] MEDS ORDERED: GLIP10TA11 PO (14:36)
[2022-02-17] MEDS ORDERED: AMLO5TAB16 PO (14:36)
[2022-02-17] MEDS ORDERED: CLOP75TA34 PO (14:36)
[2022-02-17] MEDS ORDERED: iohexol 350MG/ML 100ml bottle IV ONE (15:16)
[2022-02-17] MEDS ORDERED: phenylephrine 10mg/ml inj. ONE (15:16)
[2022-02-17] MEDS ORDERED: atropine 0.1mg/ml 10ml syringe ONE (15:16)
[2022-02-17] MEDS ORDERED: LIDOcaine 1% 30ml preserv. free vial ONE (15:16)
[2022-02-17] MEDS ORDERED: DOPamine 400mg/D5W 250ml 0 ML IV ONE (15:16)
[2022-02-17] MEDS ORDERED: heparin 1,000unit/ml 10ml vial 0 ML ONE (15:16)
--- NOTE | 2022-02-17 18:15 | NUR ---
PHONED PT MILA HAIR TO NOTIFY OF DC HOME TIME
[2022-02-17] MEDS ORDERED: HYDROcodone/acetaminophen 5mg/325mg tablet PO PRN (18:20)
[2022-02-17] MEDS ORDERED: HYDROcodone/acetaminophen 10/325mg tab PO PRN (18:20)
--- NOTE | 2022-02-17 18:20 | NUR ---
REPORT TO KAITLYN SALAZAR ON TELEMETRY FLOOR. PT VSS, DENIES PAIN, BILATERAL GROIN SITES STABLE, DRESSINGS CD&I, NO BLEEDING, OR HEMATOMA NOTED.
--- NOTE | 2022-02-17 18:40 | NUR ---
TRANSFERRED PT TO ROOM 3023B WITH ALL BELONGINGS, BEDSIDE REPORT GIVEN TO KAITLYN SALAZAR, VISUALIZED BILATERAL GROIN SITES.
[2022-02-17] MEDS ORDERED: ferrous sulfate 325mg tablet PO SCH (20:00)
--- NOTE | 2022-02-17 21:55 | NUR ---
Patient given discharge instructions, stated understanding and agreement. Paperworks signed. No respiratory distress noted. Angiogram site dressing, dry and intact. Taken Peripheral IV line off. Walking in room and to bathroom with no distress stated. Brought down via wheelchair with son Cosmo picking him up.
[2022-02-18] MEDS ORDERED: multivitamins, therapeutics tablet PO SCH (08:00)
[2022-02-18] MEDS ORDERED: cholecalciferol (vitamin D3) 1,000 unit (25mcg) tablet PO SCH (08:00)
[2022-02-18] MEDS ORDERED: atorvastatin 20mg tablet PO SCH (08:00)
[2022-02-18] MEDS ORDERED: lisinopril 20mg tablet PO SCH (08:00)
[2022-02-18] MEDS ORDERED: chlorthalidone 25mg tablet PO SCH (08:00)
[2022-02-18] MEDS ORDERED: amLODIPine 5mg tablet PO SCH (08:00)
[2022-02-18] MEDS ORDERED: clopidogrel 75mg tablet PO SCH (08:00)
[2022-02-19] MEDS ORDERED: metFORMIN 500mg tablet PO SCH (08:00)
--- NOTE | 2022-02-25 13:13 | NUR ---
Case Management DC follow up:Spoke with Patient via telephone. S/P: Patient Reports : Denies: Acute/continuous CP,emergent SOB, resp distress, orthopnea, .Verbalizes he has experienced some nausea; however, no vomiting. Denies weakness, vertigo, syncope episodes.Verbalizes he has had fleeting episode of lightheadedness with changing position from sitting to standing.Denies: MOORE, blurry vision, s/s of stroke/BE-FAST, dysphagia, dysuria, hematuria, abdominal pain/distention, hematochezia, melena, unexplained bruising, bleeding, fever, chills.Verbalizes understanding of Rx: why prescribed;continues/resumes current Rx as ordered.Verbalizes understanding of s/s that warrant a -/ER visit for further evaluation.Verbalizes both right and left groin cath sites are clear; no s/s of infection.Denies : bleeding, drainage, redness, warmth to touch, and/or odor at sites.Verbalizes he has follow up appointment with his PCP 02/26/22, and has appointment with 02/28/22.Verbalizes he was not impressed with ; therefore, will not follow up with him.Verbalized the nurses were good. Needs met, questions/concerns addressed at DC. No further questions/concerns regarding recent hospital stay and or DC status at this time. Addendum: 02/25/22 at 1400 by Neida Pavon RN appointment with scheduled 03/31/22.
== END 2022-02-17 22:00 | disposition home or self-care (01) ==
LOC: SSTAY O 14:01 → PCU 3S 17:45 → UNDOADMOB 18:00 → PCU 3S 18:00 → UNDODISOB 22:00
PROVIDERS: ADMIT Student in an Organized Health Care Education/Training Program; ATTEND Student in an Organized Health Care Education/Training Program
DX: I65.21 Occlusion and stenosis of right carotid artery (principal); I10 Essential (primary) hypertension
CPT/HCPCS: 36222; 36223; 36415; 80053; 80061; 85025; 85610; 85730; 93005; C1751; C1760; C1769; C1887; C1894; G0378; G0379; J1644; J2370; J3490; J7030; Q0163; Q9967; 96360; 96361; A4620; A6258; C1884; J0461; J1265

== ENCOUNTER 2025-04-27 09:29 | Outpatient (CLI) | payer MEDICARE, OTHER ==
[~2025-04-27 09:29] MED LIST changes: +AMLO10TA13 PO; +ASPI-611 PO; -ASPI81TA52 PO; -BENA40TA73 PO; +CLOP75TA34 PO; +CYAN100T43 PO; +FERR-116 PO; +GLIP10TA18 PO; -GLIP5TAB13 PO; -Iron PO; +Vitamin C PO
[2025-04-27 10:07] LABS: CREATININE 1.16 MG/DL (0.60-1.10); TOTAL CARBON DIOXIDE 28.4 MMOL/L (24-32); eGFR 60 ML/MIN
[2025-04-27] MEDS ORDERED: iohexol 350 MG/ML 50ML vial IV ONE (10:34)
--- NOTE | 2025-04-27 13:40 | RADIOLOGY REPORT ---
Examination: CT CTA ABDOMEN LOWER EXTR RUNOFF CLINICAL HISTORY: AV STENOSIS,PAD Comparison: None Technique: Using helical technique, CT data from the lung bases through the toes was obtained during rapid IV contrast infusion. The examination was timed to the arterial system to generate a CT angiographic study. 3D images were generated at an independent work station. Dose reduction techniques included automated exposure control. Radiation Dose Information: CT Dose: CTDI volume is 4.5 mGy. Dose-length product is 1748 mGy*cm Findings: Vascular: Diffuse vascular atherosclerotic disease. Abdominal aorta: Normal caliber, patent Celiac artery: Patent SMA: Patent Renal arteries: Patent ROSINA: Patent Right lower extremity: Common iliac artery: Patent External iliac artery: Patent Internal iliac artery: Patent Common femoral artery: Patent Profunda femoral artery: Patent Superficial femoral artery: Patent with moderate diffuse tandem stenoses most prominent in the mid superficial femoral artery. Popliteal artery: Patent, moderate stenosis. Anterior tibial artery: Patent Peroneal tibial trunk: Patent Peroneal artery: Patent Posterior tibial artery: Occluded. Dorsalis pedis artery: Patent Left lower extremity: Common iliac artery: Patent External iliac artery: Patent Internal iliac artery: Patent Common femoral artery: Patent Profunda femoral artery: Patent Superficial femoral artery: Patent with moderate to severe grade tandem stenoses most advanced at the mid and distal superficial femoral artery. Popliteal artery: Patent Anterior tibial artery: Patent Peroneal tibial trunk: Patent Peroneal artery: Patent Posterior tibial artery: Occluded Dorsalis pedis artery: Patent Portal/mesenteric veins: normal Abdominal systemic veins: normal Cardiomegaly. Abdomen/Pelvis: Liver: The liver is normal in size and morphology,. No focal hepatic lesion. The portal veins are patent. Biliary System: Gallbladder: Normal Bile Ducts: No intrahepatic or extrahepatic biliary ductal dilation. Spleen: No splenomegaly or focal splenic lesion. Pancreas: No masses or ductal dilation. Adrenals: Normal. Urinary System: Kidneys and Ureters: Normal in size and location. No renal masses. No renal or ureteral calculi. No hydronephrosis or hydroureter. Bladder: Normal. GI System: Stomach, small bowel, and large bowel are normal in caliber without wall thickening or dilation Lymph nodes: No lymphadenopathy. Peritoneal cavity and surface: No free fluid. No pneumoperitoneum. Soft Tissues: Normal. Reproductive Organs: Normal. Bones: No acute fracture or aggressive osseous lesion. Impression: Vascular: Diffuse vascular atherosclerotic disease. 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 Right Lower Extremity: 1. Patent inflow 2. Occlusion of the posterior tibial artery. 3. 2 vessel arterial flow into the right foot via the dorsalis pedis and peroneal artery. Left Lower Extremity: 1. Patent inflow 2. Occlusion of the posterior tibial artery. 3. 2 vessel arterial flow into the left foot via the dorsalis pedis and peroneal artery. Abdomen/Pelvis: 1. No acute abdominal pelvic process.
== END 2025-04-27 23:59 | disposition home or self-care (01) ==
LOC: RAD 09:29
PROVIDERS: ATTEND Internal Medicine Interventional Cardiology
DX: I70.213 Atherosclerosis of native arteries of extremities with intermittent claudication, bilateral legs (principal); I35.0 Nonrheumatic aortic (valve) stenosis
CPT/HCPCS: 36415; 75635; 80048; Q9967